=== PATIENT | male | born 1975 | race Caucasian/White ===

== ENCOUNTER 2021-01-30 19:54 | Emergency (ER) | payer SELFPAY ==
[2021-01-30 20:07] VITALS: BP 151/92; PULSE 78; RESP 16; TEMP 36.6; O2SAT 100; BMI 29.4
--- NOTE | 2021-01-30 20:19 | ED_ITS ---
HPI - General Adult General: Chief complaint: General Medical Stated complaint: possible infection in left arm Time Seen by Provider: 01/30/21 20:13 Source: patient Mode of arrival: ambulatory Limitations: no limitations History of Present Illness: HPI narrative: 45-year-old male patient presents to the emergency department with 2 to 3-day history of redness to the left arm, he reports injected methamphetamine to the left arm, noted red streak that started up the arm. He reports itching to the area, denies fever chills nausea vomiting. He reports no previous history in the past of such infection. Location: upper extremity Radiation: proximal Severity: mild Quality: other (Denies pain) Associated symptoms: Reports no associated symptoms; Deny chest pain, diaphoresis, dyspnea, headache(s), nausea, rash, palpitations or vomiting Treatments prior to arrival: none Review of Systems General: Reports: 10 or more systems reviewed and unremarkable except in HPI and below Const: Denies: fever(s), chills or diaphoresis Eyes: Denies: blurry vision or eye redness ENMT: Denies: throat pain, dental pain or disequilibrium Card: Denies: chest pain, palpitations or irregular heart rhythm Resp: Denies: dyspnea, productive cough, non-productive cough or wheezing GI: Denies: abdominal pain, nausea or vomiting : Denies: dysuria Musc: Denies: back pain Skin/Breast: Reports: erythema and changes in skin color; Denies: rash or pruritus Neuro: Denies: headache(s), weakness in extremities or behavioral changes Psych: Denies: anxiety or depression Melo/Lymph: Denies: easy bruising Physical Exam Const: COMMON NORMALS: no acute distress, average body habitus, patient oriented x3, healthy appearing, alert and well nourished GENERAL APPEARANCE: cooperative, comfortable, well kempt, well developed and well hydrated; not anxious, not ill appearing and not frail appearing ORIENTATION/CONSCIOUSNESS: Yes awake, Yes oriented to person, Yes oriented to place and Yes oriented to time HENMT: COMMON NORMALS: normocephalic, Normal external nose present and moist oral mucous membranes HEAD & SCALP: normocephalic NOSE: Normal external nose present Eye: COMMON NORMALS: Equal, round and reactive pupils present and EOMs intact bilaterally GENERAL EYE: appearance normal, both eyes and all related structures PUPIL: Yes Equal, round and reactive pupils present Neck/C-Spine: COMMON NORMALS: full ROM and no lymphadenopathy GENERAL: Yes normal visual inspection and Yes trachea midline CERVICAL SPINE: Yes cervical ROM normal Lymph: LYMPHATIC: no lymphadenopathy noted and lymphedema Chest: COMMONS NORMALS: normal inspection of the chest and normal palpation of entire chest wall Resp: COMMON NORMALS: normal respiratory effort, No retractions, No use of accessory muscles and clear to auscultation bilaterally EFFORT & INSPECTION: Yes able to speak in complete sentences, No abnormal respiratory pattern and No pursed lip breathing AUSCULTATION: clear to auscultation bilaterally Cardio: COMMON NORMALS: regular rate, regular rhythm, S1 normal heart sound present, S2 normal heart sound present and Peripheral pulses 2+ throughout RATE: regular rate RHYTHM: regular rhythm HEART SOUNDS: S1 normal heart sound present and S2 normal heart sound present PERIPHERAL PULSES: Peripheral pulses 2+ throughout GI: COMMON NORMALS: Normal to inspection, nondistended, normoactive bowel sounds present, Soft to palpation and non-tender INSPECTION: Yes normal to inspection PALPATION: Yes Soft to palpation, No Firmness to palpation present (GI) and No Tenderness to palpation present (GI) : COMMON NORMALS: Yes no CVA tenderness BLADDER/KIDNEY EXAM: Yes no CVA tenderness Back/Pelvis: COMMON NORMALS: no CVA tenderness, thoracic and lumbar spine normal to inspection, no thoracic nor lumbar tenderness and thoraco-lumbar ROM normal Extremity: COMMON NORMALS: normal to inspection, full ROM, capillary refill normal, no clubbing, cyanosis or edema, no calf tenderness and no pedal edema GENERAL: Yes normal exam except as noted EXTREMITY IMAGE (FRONT): 1. Patient has x marked on his arm, antecubital space with proximal erythema of 2 cm. Negative edema or erythema of the arm. Negative axillary lymphadenopathy. No increased warmth noted Neuro: COMMON NORMALS: patient oriented x3 and no focal motor deficits SENSORIUM/ORIENTATION: Yes alert, Yes oriented to person, Yes oriented to place and Yes oriented to time Psych: COMMON NORMALS: mental status grossly normal, Normal thought process present and cooperative APPEARANCE: Yes well kempt ACTIVITY/MOTOR BEHAVIOR: Yes appropriate eye contact THOUGHT PROCESS: Normal thought process present Skin: COMMON NORMALS: no rashes or lesions noted and turgor normal GENERAL SKIN EXAM: no rashes or lesions noted and turgor normal Course Vital Signs: Vital signs: Vital Signs Temperature 97.8 F 01/30/21 20:07 Pulse Rate 78 01/30/21 20:07 Respiratory Rate 16 01/30/21 20:07 Blood Pressure 151/92 01/30/21 20:07 Pulse Oximetry 100 01/30/21 20:07 Discharge Plan Discharge Patient Disposition: Home Clinical Impression: Methamphetamine abuse, Cellulitis of arm, left Condition: Stable Prescriptions: New clindamycin HCl 300 mg capsule 300 mg PO QID 10 Days Qty: 40 RF: 0 Discharge Orders: Discharge ED (Routine); Ordered 01/30/21 Ordered By: Kamryn Serna Discharge Diet: Usual diet Discharge Activity: Resume usual activity Patient Instructions: Cellulitis (ED), Methamphetamine Abuse (ED), Opioid Safety Activity Restrictions/Additional Instructions: Return to the emergency department if you develop increased redness, swelling under the arm or fever/chills Take clindamycin until all gone, even if feeling better May take Benadryl as needed for itching Follow-up with your primary care provider in 1 to 2 days to ensure you are improving. Coding Level of Care Code ED Enzyme Chemist for Su Fwmatthew Exam Comprehensive
[2021-01-30] MEDS: clindamycin 150 mg Capsule 300 MG PO (20:49)
[2021-01-30] MEDS: cefTRIAXone 1,000 MG in lidocaine 1% 2.1 ML 2.1 MG IM (20:54)
== END 2021-01-30 20:55 | disposition home or self-care (01) ==
PROVIDERS: Emergency Provider Nurse Practitioner Family
DX: L03.114 Cellulitis of left upper limb (principal); F15.10 Other stimulant abuse, uncomplicated
CPT/HCPCS: 96372; 99283; J0696

== ENCOUNTER 2021-05-16 02:00 | Emergency (ER) | payer SELFPAY ==
[2021-05-16 02:38] VITALS: BP 134/81; PULSE 72; RESP 16; TEMP 36.8; O2SAT 97; BMI 29.4
--- NOTE | 2021-05-16 02:54 | ED_ITS ---
HPI - Dental/Oral General: Chief complaint: Dental/Oral Stated complaint: syncopal episodes Time Seen by Provider: 05/16/21 02:50 History of Present Illness: HPI Narrative: This patient presents to the emergency department complaining of dental pain. Patient is significantly poor dentition and thinks he has a dental infection. Patient states he states been like this for some time and needs to see a dentist to have multiple. MD Complaint: tooth pain Location: Tooth # (3) Onset (ago): week(s) Associated symptoms: Denies fever(s) Review of Systems General: Reports: 10 or more systems reviewed and unremarkable except in HPI and below Const: Denies: fever(s), chills, body aches or fatigue Eyes: Denies: change in vision or blurry vision ENMT: Reports: dental pain; Denies: throat pain, hoarseness or mouth pain Card: Denies: chest pain, palpitations, irregular heart rhythm, edema, swelling of feet/ankles or lightheadedness Resp: Denies: dyspnea, productive cough, non-productive cough, wheezing or pain on inspiration GI: Denies: abdominal pain, nausea or vomiting : Denies: flank pain, dysuria, urinary frequency, urinary urgency or urinary hesitancy Musc: Denies: neck pain, back pain, extremity pain, extremity swelling, joint pain, joint swelling, joint redness, joint warmth or limited range of motion Skin/Breast: Denies: rash, pruritus, erythema or skin tenderness Neuro: Denies: headache(s), numbness in extremities or weakness in extremities Psych: Denies: anxiety or depression Physical Exam Const: COMMON NORMALS: no acute distress, average body habitus, patient oriented x3, no limitations, healthy appearing, alert and well nourished HENMT: COMMON NORMALS: normocephalic, atraumatic, hearing grossly normal bilaterally, external ears normal, EAC's normal, TM's normal bilaterally, Normal external nose present, Normal nasal mucous membranes and turbinates present, moist oral mucous membranes, oropharynx normal, dentition normal and gingiva normal HEAD & SCALP: normocephalic and atraumatic NOSE: Normal external nose present and Normal nasal mucous membranes and turbinates present EXTERNAL EAR: Yes external ears normal EXTERNAL AUDITORY CANAL: EAC's normal TYMPANIC MEMBRANE: TM's normal bilaterally TEETH & GINGIVA: Yes gingiva abnormal and Yes poor dentition Neck/C-Spine: COMMON NORMALS: full ROM, no lymphadenopathy, supple, no meningeal signs, no JVD, Thyroid normal and No carotid bruits THYROID: Thyroid normal Chest: COMMONS NORMALS: normal inspection of the chest, normal palpation of entire chest wall, normal inspection of the breasts and normal palpation of the breasts Breast/axilla inspection: Yes normal inspection of the breasts BREAST/AXILLA PALPATION: Yes normal palpation of the breasts Resp: COMMON NORMALS: normal respiratory effort, No retractions, No use of accessory muscles, clear to auscultation bilaterally and percussion normal AUSCULTATION: clear to auscultation bilaterally PERCUSSION: percussion normal Cardio: COMMON NORMALS: no JVD, regular rate, regular rhythm, S1 normal heart sound present, S2 normal heart sound present, No gallops present (Cardio), No clicks present (Cardio), No murmurs present (Cardio), No rub (Cardio) and Peripheral pulses 2+ throughout RATE: regular rate RHYTHM: regular rhythm HEART SOUNDS: S1 normal heart sound present and S2 normal heart sound present PERIPHERAL PULSES: Peripheral pulses 2+ throughout GI: COMMON NORMALS: Normal to inspection, nondistended, normoactive bowel sounds present, Soft to palpation, non-tender, No hepatosplenomegaly present, no masses and no bruits PALPATION: Yes Soft to palpation and Yes No hepatosplenomegaly present : COMMON NORMALS: Yes no CVA tenderness BLADDER/KIDNEY EXAM: Yes no CVA tenderness Back/Pelvis: COMMON NORMALS: no CVA tenderness, thoracic and lumbar spine normal to inspection, no thoracic nor lumbar tenderness, thoraco-lumbar ROM normal and straight leg raise negative bilaterally Extremity: COMMON NORMALS: normal to inspection, full ROM, capillary refill normal, no joint enlargement, no clubbing, cyanosis or edema, no calf tenderness and no pedal edema Neuro: COMMON NORMALS: patient oriented x3 SENSORIUM/ORIENTATION: Yes alert MENINGEAL SIGNS: Yes no meningeal signs Course Reevaluation(s): Reevaluation #1: Patient be discharged home with Keflex and diclofenac. May use [id number] Anbesol or Orajel. As needed. Patient should swish with salt water and spit. Follow-up with dentist of choice in 2 to 3 days as needed. Time: 02:56 Vital Signs: Vital signs: Vital Signs Temperature 98.2 F 05/16/21 02:38 Pulse Rate 72 05/16/21 02:38 Respiratory Rate 16 05/16/21 02:38 Blood Pressure 134/81 05/16/21 02:38 Pulse Oximetry 97 05/16/21 02:38 Discharge Plan Discharge Patient Disposition: Home Clinical Impression: Dental abscess, Dental caries Condition: Stable Prescriptions: New dicyclomine 20 mg tablet 20 mg PO TID Qty: 14 RF: 0 diclofenac sodium 75 mg tablet,delayed release (DR/EC) 75 mg PO BID PRN (Reason: pain) Qty: 20 RF: 0 Discharge Orders: Discharge ED (Routine); Ordered 05/16/21 Ordered By: Serge Klein Discharge Diet: Advance as tolerated Discharge Activity: Resume usual activity Patient Instructions: Opioid Safety Activity Restrictions/Additional Instructions: Patient be discharged home with Keflex and diclofenac. May use [id number] Anbesol or Orajel. As needed. Patient should swish with salt water and spit. Follow-up with dentist of choice in 2 to 3 days as needed. Coding Level of Care Code ED [employer] Supervisor for Su Guillen
[2021-05-16 03:38] VITALS: BP 140/78; PULSE 89; RESP 18; O2SAT 98
== END 2021-05-16 03:41 | disposition home or self-care (01) ==
PROVIDERS: Emergency Provider Emergency Medicine
DX: K04.7 Periapical abscess without sinus (principal); K02.9 Dental caries, unspecified
CPT/HCPCS: 99282

== ENCOUNTER 2021-05-27 12:26 | Emergency (ER) | payer SELFPAY ==
[2021-05-27 12:40] VITALS: BP 183/101; PULSE 70; RESP 16; TEMP 37; O2SAT 99; BMI 29.4
--- NOTE | 2021-05-27 12:48 | XRR_ITS ---
PROCEDURE INFORMATION: Exam: XR Chest Exam date and time: 05/27/2021 12:48 PM Age: 45 years old Clinical indication: Pain; Chest pressure; Additional info: Cp TECHNIQUE: Imaging protocol: XR of the chest. Views: 1 view. COMPARISON: CR Chest 1 [place] [id number] 03/21/2019 10:09 PM FINDINGS: Lungs: Unremarkable. No consolidation. Pleural spaces: Unremarkable. No pleural effusion. No pneumothorax. Heart/Mediastinum: Unremarkable. No cardiomegaly. Bones/joints: Unremarkable. XR/XR chest 1V portable [id number] IMPRESSION: No acute findings.
--- NOTE | 2021-05-27 12:48 | ECG_ITS ---
[facility] Test Date: 2021-05-27 Pat Name: Ganga Hernandez Department: Room: Gender: Male Academic Assistant: : 1975 Requested By: Deniz Reyes I Order Number: [id number] Reading MD: Tai Tsai M.D. Measurements Intervals [place] Rate: 63 P: 32 MN: 147 QRS: 19 QRSD: 93 T: 38 QT: 407 QTc: 417 Interpretive Statements SINUS RHYTHM Compared to ECG 03/21/2019 23:13:05 T-wave abnormality no longer present Electronically Signed On 05-28-2021 21:03:44 CDT by Tai Tsai M.D. [id number]
--- NOTE | 2021-05-27 12:50 | ED_ITS ---
HPI - Chest Pain General: Chief Complaint: Chest Pain Stated Complaint: cp, heavy pressure Time Seen by Provider: 05/27/21 12:41 Source: patient Mode of arrival: ambulatory Limitations: no limitations History of Present Illness: HPI narrative: 45-year-old male with no significant past medical history who presents to the emergency department with chest pain. He describes it as chest pressure and it started about 5 hours ago when he woke from sleep. Chest pain is retrosternal and it radiates to his left shoulder. No dizziness, no nausea or vomiting. Over the last few weeks he has had episodes of syncope with associated fecal incontinence. He has not been evaluated for this in the emergency department. MD complaint: chest heaviness Onset (ago): hour(s) (5) Timing of current episode: constant Prior episodes: No Onset: during rest Pain location: substernal Pain radiation: left shoulder Severity: severe Quality: heaviness Relieving factors: nothing Exacerbating factors: nothing Associated symptoms: Deny abdominal pain, diaphoresis, dyspnea, fever(s), leg edema, nausea, palpitations, sense of impending doom, syncope or vomiting Treatment prior to arrival: none Review of Systems General: Reports: 10 or more systems reviewed and unremarkable except in HPI and below Const: Denies: fever(s) or diaphoresis Card: Denies: palpitations or syncope Resp: Denies: dyspnea GI: Denies: abdominal pain, nausea or vomiting Physical Exam Const: COMMON NORMALS: no acute distress, average body habitus, patient oriented x3, no limitations, healthy appearing, alert and well nourished HENMT: COMMON NORMALS: normocephalic, atraumatic and moist oral mucous membranes HEAD & SCALP: normocephalic and atraumatic Neck/C-Spine: COMMON NORMALS: no meningeal signs and no JVD Chest: COMMONS NORMALS: normal inspection of the chest and normal palpation of entire chest wall Resp: COMMON NORMALS: normal respiratory effort, No retractions, No use of accessory muscles, clear to auscultation bilaterally and percussion normal AUSCULTATION: clear to auscultation bilaterally PERCUSSION: percussion normal Cardio: COMMON NORMALS: no JVD, regular rate, regular rhythm, S1 normal heart sound present, S2 normal heart sound present, No gallops present (Cardio), No clicks present (Cardio), No murmurs present (Cardio), No rub (Cardio) and Peripheral pulses 2+ throughout RATE: regular rate RHYTHM: regular rhythm HEART SOUNDS: S1 normal heart sound present and S2 normal heart sound present PERIPHERAL PULSES: Peripheral pulses 2+ throughout GI: COMMON NORMALS: Normal to inspection, nondistended, normoactive bowel sounds present, Soft to palpation, non-tender, No hepatosplenomegaly present, no masses and no bruits PALPATION: Yes Soft to palpation and Yes No hepatosplenomegaly present Extremity: COMMON NORMALS: normal to inspection, full ROM, capillary refill normal, no calf tenderness and no pedal edema Neuro: COMMON NORMALS: patient oriented x3 SENSORIUM/ORIENTATION: Yes alert MENINGEAL SIGNS: Yes no meningeal signs Course Reevaluation(s): Reevaluation #1: Discussed his lab and imaging findings with him. Negative for acute findings. Negative high-sensitivity troponin x2. He will be discharged home and will obtain an outpatient stress test. Patient voiced understanding and is in agreement with the plan. Time: 16:12 Vital Signs: Vital signs: Vital Signs Temperature 98.6 F 05/27/21 12:40 Pulse Rate 59 L 05/27/21 16:26 Respiratory Rate 18 05/27/21 16:26 Blood Pressure 153/88 05/27/21 16:26 Pulse Oximetry 99 05/27/21 16:26 MDM - Chest Pain MDM Narrative: Medical decision making narrative: 45-year-old male who presents to the emergency department with chest pain. Evaluation in the emergency department is unremarkable. He is discharged home and will obtain an outpatient stress test. Pain was relieved with nitroglycerin. Lab Data: Labs: Lab Results 05/27/21 05/27/21 05/27/21 Range/Units 13:05 13:05 13:05 WBC 11.4 H (4.0-10.0) 10^3/ uL RBC 4.68 (4.1-5.3) 10^6/u L Hgb 13.7 (11.7-16.6) g/dL Hct 42.9 (42.0-52.0) % MCV 91.7 (80-94) fL MCH 29.3 (28.0-34.0) pg MCHC 31.9 (30.0-36.0) g/dL RDW 12.9 (12.1-15.1) % Plt Count 255 (130-400) 10^3/c mm MPV 9.9 (7.4-10.4) fL Neut % (Auto) 30.6 % Lymph % (Auto) 61.8 % [place] % (Auto) 5.2 % Eos % (Auto) 1.5 % Baso % (Auto) 0.7 % Neut # (Auto) 3.50 (1.8-7.7) 10^3/u L Lymph # (Auto) 7.0 H (0.8-4.8) 10^3/u L [place] # (Auto) 0.6 (0.2-0.9) 10^3/u L Eos # (Auto) 0.2 (0.0-0.8) 10^3/u L Baso # (Auto) 0.1 (0.0-0.1) 10^3/u L Nucleated RBC % (a uto) 0 % Nucleated RBCs # 0.0 /100WBC D-Dimer 0.72 H (0-0.59) ug/mIFE U Sodium 136 (136-145) mmol/L Potassium 4.4 (3.5-5.1) mmol/L Chloride 103 (98-107) mmol/L Carbon Dioxide 23 (22-29) mmol/L Anion Gap 14.4 (5-19) BUN 13 (6-20) mg/dL Creatinine 1.0 (0.7-1.2) mg/dL GFR Calculation 80.8 L (90-130) mL/min Glucose 115 (65-115) mg/dL Calculated Osmolal ity 283 L (285-295) mOsm/k g Calcium 8.8 (8.5-10.5) mg/dL Total Bilirubin 0.3 (0.15-1.2) mg/dL AST 29 (0-40) U/L ALT 20 (0-41) U/L Alkaline Phosphata se 75 (40-130) IU/L Troponin T Baselin e (0-15) ng/L Troponin T 120 Min [place] (0-15) ng/L Delta Troponin T (0-10) ABS# NT-Pro-B Natriuret Pep 93 (0-125) pg/mL Total Protein 7.3 (6.6-8.7) g/dL Albumin 3.8 (3.5-5.2) g/dL Globulin 3.5 (1.3-4.6) g/dL Lipase 27 (13-60) U/L 05/27/21 05/27/21 Range/Units 13:05 15:12 WBC (4.0-10.0) 10^3/ uL RBC (4.1-5.3) 10^6/u L Hgb (11.7-16.6) g/dL Hct (42.0-52.0) % MCV (80-94) fL MCH (28.0-34.0) pg MCHC (30.0-36.0) g/dL RDW (12.1-15.1) % Plt Count (130-400) 10^3/c mm MPV (7.4-10.4) fL Neut % (Auto) % Lymph % (Auto) % [place] % (Auto) % Eos % (Auto) % Baso % (Auto) % Neut # (Auto) (1.8-7.7) 10^3/u L Lymph # (Auto) (0.8-4.8) 10^3/u L [place] # (Auto) (0.2-0.9) 10^3/u L Eos # (Auto) (0.0-0.8) 10^3/u L Baso # (Auto) (0.0-0.1) 10^3/u L Nucleated RBC % (a uto) % Nucleated RBCs # /100WBC D-Dimer (0-0.59) ug/mIFE U Sodium (136-145) mmol/L Potassium (3.5-5.1) mmol/L Chloride (98-107) mmol/L Carbon Dioxide (22-29) mmol/L Anion Gap (5-19) BUN (6-20) mg/dL Creatinine (0.7-1.2) mg/dL GFR Calculation (90-130) mL/min Glucose (65-115) mg/dL Calculated Osmolal ity (285-295) mOsm/k g Calcium (8.5-10.5) mg/dL Total Bilirubin (0.15-1.2) mg/dL AST (0-40) U/L ALT (0-41) U/L Alkaline Phosphata se (40-130) IU/L Troponin T Baselin e 6 (0-15) ng/L Troponin T 120 Min [place] 6.00 (0-15) ng/L Delta Troponin T 0 (0-10) ABS# NT-Pro-B Natriuret Pep (0-125) pg/mL Total Protein (6.6-8.7) g/dL Albumin (3.5-5.2) g/dL Globulin (1.3-4.6) g/dL Lipase (13-60) U/L Imaging Data^: CTA Chest: Attestation: I personally reviewed and interpreted this imaging study as follows: Radiologist's impression: [address] [id number] Scan ReportSigned Patient: Ganga Hernandez #: [id number]: 1975Acct#:[id number]/Sex: 45 / MADM Date: 05/27/21Loc: ERRoom/Bed:Attending Dr: Ordering Provider/Ordering MD: Deniz Reyes MD, [facility] [place] Date of Service: 05/27/21 Procedure(s): CT angio chest PE protcl [id number] Accession Number(s): [id number] Report Number: [id number] PROCEDURE INFORMATION: Exam: CTA Chest With Contrast Exam date and time: 05/27/2021 2:11 PM Age: 45 years old Clinical indication: Sternal or substernal pain; Patient HX: C/O cp/pressure radiating to L shoulder; Additional info: Cp, SOB, dizziness TECHNIQUE: Imaging protocol: Computed tomographic angiography of the chest with contrast. 3D rendering (Not supervised by radiologist): MIP and/or 3D reconstructed images were created by the technologist. Radiation optimization: All CT scans at this facility use at least one of these dose optimization techniques: automated exposure control; mA and/or kV adjustment per patient size (includes targeted exams where dose is matched to clinical indication); or iterative reconstruction. Contrast material: OMNI 350; Contrast volume: 84 ml; Contrast route: INTRAVENOUS (IV); COMPARISON: CR (CHEST, ) 05/27/2021 1:15 PM RADIATION DOSE METRICS: Total DLP (mGy-cm): 543.31 FINDINGS: Pulmonary arteries: Normal. No pulmonary emboli. Aorta: Unremarkable. No aortic aneurysm. No aortic dissection. Lungs: Unremarkable. No consolidation. No masses. Pleural spaces: Unremarkable. No pneumothorax. No pleural effusion. Heart: Unremarkable. No cardiomegaly. No pericardial effusion. Lymph nodes: Unremarkable. No enlarged lymph nodes. Gallbladder and bile ducts: The gallbladder has been removed. Bones/joints: Unremarkable. No acute fracture. Soft tissues: Unremarkable. CT/CT angio chest PE protcl [id number] IMPRESSION: No evidence for pulmonary embolus. Radiation Dose CTDIVOL = (mGy): DLP = 543.31 (mGy-cm) Dictated By:Trish Quiroz MDSigned By:Trish Quiroz MDSigned Date/Time:05/27/21 1451DD/ 1449 CXR: Attestation: I personally reviewed and interpreted this imaging study as follows: Radiologist's impression: [address] [id number] ReportSigned Patient: Ganga Hernandez #: [id number]: 1975Acct# :[id number]/Sex: 45 / MADM Date: 05/27/21Loc: [facility]/Bed:Attending Dr: Ordering Provider/Ordering MD: Deniz Reyes MD, [facility] [place] Date of Service: 05/27/21 Procedure(s): XR chest 1V portable [id number] Accession Number(s): [id number] Report Number: [id number] PROCEDURE INFORMATION: Exam: XR Chest Exam date and time: 05/27/2021 12:48 PM Age: 45 years old Clinical indication: Pain; Chest pressure; Additional info: Cp TECHNIQUE: Imaging protocol: XR of the chest. Views: 1 view. COMPARISON: CR Chest 1 [place] [id number] 03/21/2019 10:09 PM FINDINGS: Lungs: Unremarkable. No consolidation. Pleural spaces: Unremarkable. No pleural effusion. No pneumothorax. Heart/Mediastinum: Unremarkable. No cardiomegaly. Bones/joints: Unremarkable. XR/XR chest 1V portable [id number] IMPRESSION: No acute findings. Dictated By:Trish Quiroz MDSigned By:Trish Quiroz MDSigned Date/Time:05/27/21 1447DD/ 1445 EKG Data^: EKG 1: Attestation: I personally reviewed and interpreted this EKG as follows: EKG interpretation date: 05/27/21 EKG interpretation time: 13:08 Prior EKG tracings: not available for review Interpretation: Sinus rhythm. Heart rate 63 bpm. Normal axis. No ST changes. EKG 2: Attestation: I personally reviewed and interpreted this EKG as follows: EKG interpretation date: 05/27/21 EKG interpretation time: 14:57 Prior EKG tracings: available for review Interpretation: Sinus bradycardia. Heart rate 58 bpm. Normal axis. No ST changes. No significant change from earlier. Discharge Plan Discharge Patient Disposition: Home Clinical Impression: Chest pain, non-cardiac Condition: Stable Prescriptions: Continued dicyclomine 20 mg tablet 20 mg PO TID Qty: 14 RF: 0 diclofenac sodium 75 mg tablet,delayed release (DR/EC) 75 mg PO BID PRN (Reason: pain) Qty: 20 RF: 0 Discharge Orders: Discharge ED (Routine); Ordered 05/27/21 Ordered By: Deniz Reyes Discharge Diet: Usual diet Discharge Activity: Increase activity as tolerated Patient Instructions: Noncardiac Chest Pain (ED) Activity Restrictions/Additional Instructions: Return for any new or worsening symptoms. Follow-up with your primary care provider within 3 days. You will be contacted by case management to schedule an outpatient stress test. 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
[2021-05-27] MEDS: aspirin 81 mg Chew Tablet 324 MG PO (12:54)
[2021-05-27 13:10] LABS: Basophils # 0.1 10^3/uL (0.0-0.1); Basophils % 0.7 %; Eosinophils # 0.2 10^3/uL (0.0-0.8); Eosinophils % 1.5 %; Hematocrit 42.9 % (42.0-52.0); Hemoglobin 13.7 g/dL (11.7-16.6); Lymphocytes % 61.8 %; Mean Corpuscular HGB Conc 31.9 g/dL (30.0-36.0); Mean Corpuscular Hemoglobin 29.3 pg (28.0-34.0); Mean Corpuscular Volume 91.7 fL (80-94); Mean Platelet Volume 9.9 fL (7.4-10.4); Monocytes # 0.6 10^3/uL (0.2-0.9); Monocytes % 5.2 %; Neutrophils % 30.6 %; Nucleated Red Blood Cells % 0 %; Platelet Count 255 10^3/cmm (130-400); Red Blood Count 4.68 10^6/uL (4.1-5.3); Red Cell Distribution Width 12.9 % (12.1-15.1); White Blood Count 11.4 10^3/uL (4.0-10.0)
[2021-05-27] MEDS: nitroglycerin 0.4 mg sublingual Tablet SUBLINGUAL ×2 (13:12→13:20)
[2021-05-27 13:14] VITALS: BP 166/102; PULSE 67; RESP 18; O2SAT 99
[2021-05-27 13:18] VITALS: BP 139/90; PULSE 71; RESP 18; O2SAT 98
[2021-05-27 13:24] LABS: D Dimer 0.72 ug/mIFEU (0-0.59)
[2021-05-27 13:25] VITALS: BP 138/88; PULSE 67; RESP 18; O2SAT 96
--- NOTE | 2021-05-27 13:26 | PC.NURSE ---
@ Nitro resolved pt chest pain and current BP 138/88, er doctor notified.
[2021-05-27 13:52] LABS: Troponin(5th) Baseline 6 ng/L (0-15)
[2021-05-27 14:01] LABS: Alanine Aminotransferase 20 U/L (0-41); Albumin Level 3.8 g/dL (3.5-5.2); Alkaline Phosphatase 75 IU/L (40-130); Aspartate Amino Transferase 29 U/L (0-40); Blood Urea Nitrogen 13 mg/dL (6-20); Calcium 8.8 mg/dL (8.5-10.5); Carbon Dioxide 23 mmol/L (22-29); Chloride 103 mmol/L (98-107); Globulin 3.5 g/dL (1.3-4.6); Glomerular Filtration Rate 80.8 mL/min (90-130); Glucose 115 mg/dL (65-115); Lipase 27 U/L (13-60); NT Pro B Type Natriuretic Pept 93 pg/mL (0-125); Osmolality Calculated 283 mOsm/kg (285-295); Sodium 136 mmol/L (136-145); Total Bilirubin 0.3 mg/dL (0.15-1.2); Total Protein 7.3 g/dL (6.6-8.7)
[2021-05-27 14:03] LABS: Anion Gap 14.4 (5-19); Potassium 4.4 mmol/L (3.5-5.1)
--- NOTE | 2021-05-27 14:11 | CTR_ITS ---
PROCEDURE INFORMATION: Exam: CTA Chest With Contrast Exam date and time: 05/27/2021 2:11 PM Age: 45 years old Clinical indication: Sternal or substernal pain; Patient HX: C/O cp/pressure radiating to L shoulder; Additional info: Cp, SOB, dizziness TECHNIQUE: Imaging protocol: Computed tomographic angiography of the chest with contrast. 3D rendering (Not supervised by radiologist): MIP and/or 3D reconstructed images were created by the technologist. Radiation optimization: All CT scans at this facility use at least one of these dose optimization techniques: automated exposure control; mA and/or kV adjustment per patient size (includes targeted exams where dose is matched to clinical indication); or iterative reconstruction. Contrast material: OMNI 350; Contrast volume: 84 ml; Contrast route: INTRAVENOUS (IV); COMPARISON: CR (CHEST, ) 05/27/2021 1:15 PM RADIATION DOSE METRICS: Total DLP (mGy-cm): 543.31 FINDINGS: Pulmonary arteries: Normal. No pulmonary emboli. Aorta: Unremarkable. No aortic aneurysm. No aortic dissection. Lungs: Unremarkable. No consolidation. No masses. Pleural spaces: Unremarkable. No pneumothorax. No pleural effusion. Heart: Unremarkable. No cardiomegaly. No pericardial effusion. Lymph nodes: Unremarkable. No enlarged lymph nodes. Gallbladder and bile ducts: The gallbladder has been removed. Bones/joints: Unremarkable. No acute fracture. Soft tissues: Unremarkable. CT/CT angio chest PE protcl [id number] IMPRESSION: No evidence for pulmonary embolus. Radiation Dose CTDIVOL = (mGy): DLP = 543.31 (mGy-cm)
[2021-05-27] MEDS: iohexol 350 mg/mL 100 mL Btl IV (14:36)
--- NOTE | 2021-05-27 14:48 | ECG_ITS ---
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 Measurements Intervals [place] Rate: 58 P: 39 UT: 153 QRS: 20 QRSD: 96 T: 24 QT: 417 QTc: 411 Interpretive Statements SINUS BRADYCARDIA Compared to ECG 05/27/2021 13:06:43 Sinus rhythm no longer present Electronically Signed On 05-30-2021 0:31:46 CDT by Tai Tsai M.D. [email or web address] [id number]
[2021-05-27 15:40] LABS: Troponin 5 2HR Delta 0 ABS# (0-10)
[2021-05-27 15:57] VITALS: BP 162/91; PULSE 61; RESP 16; O2SAT 100
[2021-05-27 16:26] VITALS: BP 153/88; PULSE 59; RESP 18; O2SAT 99
--- NOTE | 2021-05-30 09:59 | PC.SOCIAL ---
05/28/2021 Referral received to schedule a stress test for patient. No PCP is listed so attempted to call patient however was unable to reach. Left message at number provided. Referral was from Dr Reyes. 05/29/2021 Tried to reach patient again no answer left another message requesting a call. As of 05/30/2021 have not been able to reach patient and no return call received. Will not be able to scheduled unless patient calls back.
== END 2021-05-27 16:34 | disposition home or self-care (01) ==
PROVIDERS: Emergency Provider Family Medicine
DX: R07.89 Other chest pain (principal)
CPT/HCPCS: 36415; 71045; 71275; 80053; 83690; 83880; 84484; 85025; 85378; 93005; 99284; Q9967

== ENCOUNTER 2022-01-10 23:31 | Emergency (ER) | payer MEDICAID, SELFPAY ==
[2022-01-10 23:42] VITALS: BP 163/94; PULSE 76; RESP 16; TEMP 36.5; O2SAT 95; BMI 29.4
--- NOTE | 2022-01-11 00:32 | W.ED.GENADLT ---
HPI - General Adult General: Chief complaint: Neuro Symptoms/Deficit Stated complaint: Feet and Hands Tingeling Time Seen by Provider: 01/11/22 00:32 History of Present Illness: 46-year-old male patient comes in today with complaints of numbness and tingling in the hands and feet for about 2 months. 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 Patient appears well. Patient was concerned for circulation. Patient does report that he has a history of methamphetamine and IV drug use. Patient denies any fever or other symptoms. Patient takes no routine medications. Onset (ago): week(s) Review of Systems General: Reports: 10 or more systems reviewed and unremarkable except in HPI and below Neuro: Reports: numbness in extremities Physical Exam Const: COMMON NORMALS: alert GENERAL APPEARANCE: well kempt Neck/C-Spine: COMMON NORMALS: no meningeal signs CERVICAL SPINE: Yes cervical ROM normal and No Cervical spine tenderness Resp: COMMON NORMALS: normal respiratory effort and clear to auscultation bilaterally AUSCULTATION: clear to auscultation bilaterally Cardio: COMMON NORMALS: regular rate, regular rhythm and Peripheral pulses 2+ throughout RATE: regular rate RHYTHM: regular rhythm PERIPHERAL PULSES: Peripheral pulses 2+ throughout GI: COMMON NORMALS: Soft to palpation and non-tender PALPATION: Yes Soft to palpation Back/Pelvis: THORACIC SPINE/UPPER BACK: Yes normal to inspection and No thoracic spinal tenderness LUMBAR SPINE/LOWER BACK: Yes normal to inspection and No lumbar spinal tenderness Extremity: COMMON NORMALS: normal to inspection and full ROM Neuro: SENSORIUM/ORIENTATION: Yes alert MENINGEAL SIGNS: Yes no meningeal signs SPEECH: speech normal GAIT: Yes Normal gait present Psych: COMMON NORMALS: cooperative and speech normal APPEARANCE: Yes well kempt SPEECH: Yes normal speech MOOD & AFFECT: Yes anxious Course Vital Signs: Vital signs: Vital Signs Temperature 97.7 F 01/10/22 23:42 Pulse Rate 76 01/10/22 23:42 Respiratory Rate 16 01/10/22 23:42 Blood Pressure 163/94 01/10/22 23:42 Pulse Oximetry 95 01/10/22 23:42 [facility] - General Adult Medical Decision Making 46-year-old male patient comes in for concerns of numbness to the hands and feet. Patient appears well. Patient has good equal strength and equal pulses throughout. Normal hair distribution is normal throughout. No tenderness is noted along the spine. Vital signs are normal. Differential diagnosis includes cervical radiculopathy, lumbar radiculopathy, peripheral neuropathy idiopathic, anxiety. 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 Other thoughts may be carpal tunnel. Blood glucose was 103. No signs of stroke or or peripheral vascular disease. Recommended we try gabapentin at bedtime 300 mg to see if that would help with his symptoms. I will request case management to set patient up with neurology for further evaluation and consideration for EMG testing. Patient reports understanding and agrees to plan. Discharge Plan Discharge Patient Disposition: Home Clinical Impression: Peripheral neuropathy Qualifiers: Peripheral neuropathy type: polyneuropathy, unspecified Qualified Code(s): G62.9 - Polyneuropathy, unspecified Condition: Stable Prescriptions: New gabapentin 300 mg capsule 300 mg PO BEDTIME 30 Days Qty: 30 0RF No Action dicyclomine 20 mg tablet 20 mg PO TID Qty: 14 0RF diclofenac sodium 75 mg tablet,delayed release (DR/EC) 75 mg PO BID PRN (Reason: pain) Qty: 20 0RF Discharge Orders: Discharge ED (Routine); Ordered 01/11/22 Ordered By: Luis Michaud Discharge Diet: Usual diet Discharge Activity: Increase activity as tolerated Patient Instructions: Peripheral Neuropathy (ED), Opioid Safety Activity Restrictions/Additional Instructions: Home and rest. Take gabapentin in the evening prior to bed. Drink plenty of water with medication. Follow-up with primary care in 1 week for recheck and adjustment of medications. I will place a neurology referral for further evaluation of your neuropathy. Return to the ER for new concerns. Coding Level of Care Code ED Wireless Sales Consultant for Chg Fwd History Expanded Problem Focused Exam Expanded Problem Focused Medical Decision Making Low Complexity Time Spent (min) 20
[2022-01-11] MEDS: gabapentin 300 mg Capsule PO (01:05)
[2022-01-11 02:11] LABS: Glucose Point of Care 103 mg/dL (70-110)
--- NOTE | 2022-01-11 11:47 | DCPLANNER ---
Addendum entered by Caridad Neumann 02/01/22 12:03: advertising sales manager was notified by Dr. Gruber office, that clinic was unable to reach patient to schedule a follow up appointment. A voicemail was left for patient to call the office to schedule an appointment. Original Note: advertising sales manager had message to schedule a follow up appointment for patient with neurology. advertising sales manager emailed patients information to the neurology clinic. Patients information would be printed and reviewed. Clinic will call patient with appointment information.
== END 2022-01-11 01:22 | disposition home or self-care (01) ==
PROVIDERS: Emergency Provider Nurse Practitioner Family
DX: G62.9 Polyneuropathy, unspecified (principal)
CPT/HCPCS: 36416; 82962; 99283

== ENCOUNTER 2022-01-31 14:50 | Emergency (ER) | payer MEDICAID, SELFPAY ==
[2022-01-31 15:26] VITALS: BP 150/89; PULSE 85; RESP 16; TEMP 36.7; O2SAT 99; BMI 29.4
--- NOTE | 2022-01-31 16:45 | W.ED.EXTPRO ---
HPI - Extremity Problem General: Chief complaint: Extremity Injury, Lower Stated complaint: Painful/swollen feet Time Seen by Provider: 01/31/22 16:41 History of Present Illness: Patient presents with neuropathic pain to the feet. Been going on for months. He was night able to get his prescription filled today because he said it was not signed. He try to get it filled in [place] now is back from work and said he can get this filled here. Would like a prescription. Associated symptoms: Deny chest pain, fever(s) or rash Review of Systems Const: Denies: fever(s), chills or body aches Eyes: Denies: eye discomfort ENMT: Denies: throat pain Card: Denies: chest pain Resp: Denies: dyspnea GI: Denies: abdominal pain, nausea or vomiting Musc: Reports: other (Feet hurt all the time.) Skin/Breast: Denies: rash Neuro: Denies: headache(s) Psych: Denies: depression or suicidal ideation Physical Exam Const: COMMON NORMALS: no acute distress, patient oriented x3 and alert HENMT: COMMON NORMALS: normocephalic HEAD & SCALP: normocephalic Eye: COMMON NORMALS: EOMs intact bilaterally Neck/C-Spine: COMMON NORMALS: no JVD Resp: COMMON NORMALS: normal respiratory effort and No use of accessory muscles Cardio: COMMON NORMALS: no JVD GI: INSPECTION: Yes normal to inspection Extremity: COMMON NORMALS: normal to inspection and full ROM OTHER: Both feet with mild swelling., Good blood flow cap refill and arterial pulses. Tenderness throughout with palpation. No discoloration noted. Neuro: COMMON NORMALS: patient oriented x3 SENSORIUM/ORIENTATION: Yes alert Psych: COMMON NORMALS: mental status grossly normal Skin: COMMON NORMALS: no rashes or lesions noted GENERAL SKIN EXAM: no rashes or lesions noted Course Vital Signs: Vital signs: Vital Signs Temperature 98.1 F 01/31/22 15:26 Pulse Rate 85 01/31/22 15:26 Respiratory Rate 16 01/31/22 15:26 Blood Pressure 150/89 01/31/22 15:26 Pulse Oximetry 99 01/31/22 15:26 MDM - Extremity (Nontraumatic) Medical Decision Making Bilateral the. Patient is to have follow-up with Dr. Burton. Discharge Plan Discharge Patient Disposition: Home Clinical Impression: Neuropathy Condition: Stable Prescriptions: New gabapentin 100 mg capsule 100 mg PO TID Qty: 30 0RF No Action gabapentin 300 mg capsule 300 mg PO BEDTIME 30 Days Qty: 30 0RF dicyclomine 20 mg tablet 20 mg PO TID Qty: 14 0RF diclofenac sodium 75 mg tablet,delayed release (DR/EC) 75 mg PO BID PRN (Reason: pain) Qty: 20 0RF Discharge Orders: Discharge ED (Routine); Ordered 01/31/22 Ordered By: Justo Feliz Discharge Diet: Usual diet Discharge Activity: Increase activity as tolerated Patient Instructions: Peripheral Neuropathy (ED) Activity Restrictions/Additional Instructions: Follow-up with medical provider as directed. Take medications as prescribed. Return to the ER or your medical provider if condition worsens. Please read and understand discharge instructions. If any questions ask please. Hospital should be contacted with an appointment for Dr. Burton's office soon. Coding Level of Care Code ED Capital Equipment Specialist for Su Guillen
[2022-01-31 17:00] VITALS: BP 150/89; PULSE 89; RESP 16; O2SAT 97
== END 2022-01-31 17:05 | disposition home or self-care (01) ==
PROVIDERS: Emergency Provider Nurse Practitioner Family
DX: G62.9 Polyneuropathy, unspecified (principal)
CPT/HCPCS: 99281

== ENCOUNTER 2022-10-16 22:22 | Emergency (ER) | payer BC, MEDICAID, SELFPAY ==
[2022-10-16 22:43] VITALS: BP 181/103; PULSE 73; RESP 16; TEMP 36.6; O2SAT 98; BMI 29.2
--- NOTE | 2022-10-16 22:50 | ED_ITS ---
HPI - Extremity Problem General: Chief complaint: Extremity Problem,Nontraumatic Stated complaint: Left foot Pain Time Seen by Provider: 10/16/22 22:49 History of Present Illness: 47-year-old male patient comes in today for complaints of discomfort to the left foot with a callus and dry rash. Patient denies any fever. Patient does report history of diabetes mellitus. Patient appears nontoxic. Patient appears in mild to no pain. Associated symptoms: Reports rash Review of Systems Musc: Reports: extremity pain Skin/Breast: Reports: rash Physical Exam Const: COMMON NORMALS: alert HENMT: COMMON NORMALS: normocephalic HEAD & SCALP: normocephalic Resp: COMMON NORMALS: normal respiratory effort Cardio: COMMON NORMALS: regular rate RATE: regular rate Back/Pelvis: COMMON NORMALS: thoracic and lumbar spine normal to inspection Extremity: LEFT LOWER EXTREMITY: Yes foot & digits (Callus to the fifth digit, dry flaky rash interdigital) Left foot and digits: Yes inspection, Yes palpation, Yes ROM and Yes other (No redness or swelling, good pulses) Neuro: SENSORIUM/ORIENTATION: Yes alert Skin: NARRATIVE SKIN EXAM: Callus to the fifth digit of the left foot, dry flaky rash between the toes. Course Vital Signs: Vital signs: Vital Signs Temperature 97.9 F 10/16/22 22:43 Pulse Rate 73 10/16/22 22:43 Respiratory Rate 16 10/16/22 22:43 Blood Pressure 181/103 10/16/22 22:43 Pulse Oximetry 98 10/16/22 22:43 Oxygen Delivery Me thod 10/16/22 22:43 MDM - Extremity (Nontraumatic) Medical Decision Making Patient comes in for evaluation of a rash between the toes of his left foot and a large callus to the middle toe. Exam notes the callus to the little toe and a flaky rash. No redness or swelling is noted. No drainage is noted. Strong peripheral pulses are noted. Differential diagnosis includes without limited to tinea pedis, diabetic foot ulcer, poor hygiene, diabetic neuropathy. Recommend follow-up with primary care for continued treatment of his diabetes and neuropathy. Recommend follow-up with podiatry for evaluation of the callus to the toe. Patient was prescribed some terbinafine cream to use between the toes of his feet to the rash. Patient reported understanding of care plan need for follow-up or return to the ER for high fever, increasing redness and swelling to the foot, or ulceration. Discharge Plan Discharge Patient Disposition: Home Clinical Impression: Callus of foot Diabetes mellitus Qualifiers: Diabetes mellitus type: type 2 Diabetes mellitus buttermaker continuous churn insulin use: without buttermaker continuous churn use Diabetes mellitus complication status: with neurologic complications Diabetes mellitus complication detail: with unspecified neuropathy Qualified Code(s): E11.40 - Type 2 diabetes mellitus with diabetic neuropathy, unspecified Tinea pedis Qualifiers: Laterality: unspecified laterality Qualified Code(s): B35.3 - Tinea pedis Condition: Stable Prescriptions: New terbinafine HCl 1 % cream 1 applic topical BID Qty: 30 0RF No Action dicyclomine 20 mg tablet 20 mg PO TID Qty: 14 0RF diclofenac sodium 75 mg tablet,delayed release (DR/EC) 75 mg PO BID PRN (Reason: pain) Qty: 20 0RF gabapentin 100 mg capsule 100 mg PO TID Qty: 30 0RF Discharge Orders: Discharge ED (Routine); Ordered 10/16/22 Ordered By: Luis Michaud Discharge Diet: Usual diet Discharge Activity: Increase activity as tolerated Patient Instructions: Pain Management Activity Restrictions/Additional Instructions: Follow-up with podiatry for further evaluation and treatment of the callus to the toe and for your probable tinea pedis. Eat a healthy diet to maintain good blood sugars. Case management will contact you regarding follow-up with primary care and podiatry. Return to ER for new concerns or worsening symptoms such as high fever greater than 100.4, increasing redness and swelling of the foot, or ulceration of wound. Coding Level of Care Code ED Toggle Press Operator for Su Guillen
[2022-10-16] MEDS: terbinafine 1% Cream 15 gm 1 APPLIC TOPICAL (23:06)
--- NOTE | 2022-10-17 09:42 | PC.SOCIAL ---
Addendum entered by Caridad Neumann 11/20/22 13:01: Podiatry appointment was cancelled Addendum entered by Caridad Neumann 11/20/22 12:59: Patient had a follow up appointment scheduled with Dr. Lara - patient did not attend appointment. Original Note: Podiatry Referral Referral sent to podiatry scheduling. Clinic will contact patient with appt date/time. PCP Appointment scheduled with Dr. Lara on October 21 at 0845. Called and updated patient of appt. date/time.
== END 2022-10-16 23:39 | disposition home or self-care (01) ==
PROVIDERS: Emergency Provider Nurse Practitioner Family
DX: B35.3 Tinea pedis (principal); L84 Corns and callosities; E11.40 Type 2 diabetes mellitus with diabetic neuropathy, unspecified
CPT/HCPCS: 99283

== ENCOUNTER → 2023-01-30 09:59 | Outpatient (BNVA) | payer BC, MEDICAID, SELFPAY | PROVIDERS: PCP Family Medicine; Visit Provider Family Medicine | DX: I10 Essential (primary) hypertension (principal); N52.9 Male erectile dysfunction, unspecified; B19.20 Unspecified viral hepatitis C without hepatic coma | CPT/HCPCS: 80053; 80061; 81000; 84403; 85025; 86705; 86706; 86709; 86803; 87340; 87522 ==

== ENCOUNTER → 2023-02-05 09:17 | Outpatient (BNVA) | payer BC, MEDICAID, SELFPAY | PROVIDERS: PCP Family Medicine; Visit Provider Podiatrist Foot & Ankle Surgery | DX: G62.9 Polyneuropathy, unspecified (principal); L84 Corns and callosities; M20.42 Other hammer toe(s) (acquired), left foot | CPT/HCPCS: 73630 ==

== ENCOUNTER 2023-06-16 08:29 | Emergency (ER) | payer BC, MEDICAID, SELFPAY ==
[2023-06-16 08:34] VITALS: BP 128/86; PULSE 70; RESP 16; TEMP 36.8; O2SAT 99
--- NOTE | 2023-06-16 08:55 | ED_ITS ---
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 This is not work-related. He was not wearing adequate eye protection at times he was using some he does not think it was rated properly for the tool he was using other times he was not using any he is photosensitivity burning sensation in his eyes he was not doing any grinding does not think he got anything in his eyes but they do feel real abhinav and gritty as he describes it. His tetanus is up-to-date within the last year. MD chief complaint: eye pain and eye redness Onset (ago): hour(s) Onset description: sudden Duration: constant Location: both eyes Eye Symptoms: burning, redness, pain, itching and photophobia Place: home Mechanism: UV exposure Severity: moderate If Pain, Quality: burning Associated symptoms: Denies cough, fever(s), headache(s), nausea, neck pain, numbness, rhinorrhea, short of breath, vomiting or weakness Review of Systems Const: Denies: fever(s) or chills ENMT: Denies: throat pain, ear or mastoid pain, nasal discharge or nasal congestion Card: Denies: chest pain Resp: Denies: dyspnea GI: Denies: nausea or vomiting Musc: Denies: neck pain Skin/Breast: Denies: rash or pruritus Neuro: Denies: headache(s) PFS ED PFSH: Medical History Methamphetamine abuse Methamphetamine use disorder, moderate, in sustained remission Peripheral neuropathy Surgical History History of cholecystectomy Family History Father Cancer prostate and stomach Other Diabetes Hypertension Lung disease Denies family history of CAD (coronary artery disease) Clotting disorder Dementia Hyperlipidemia Psychiatric illness Chronic kidney disease (CKD) Anesthesia complication Bleeding disorder Stroke Social History (Updated 02/21/23 @ 10:29 by Concetta Osborne LPN) Smoking and tobacco status: current every day smoker cigarettes Packs smoked per day: 0.25 [ Other cigarette details: 1/4PPD, 10PY] Alcohol intake: never Substance/Drug Use: former Date of last use: sober x 15months (opioids and meth) Lives independently: Yes Marital status: Number of children: 1 service: No Current occupational status: employed Current occupation: [employer] Current occupational exposures/hazards: Yes Current gender identity: Male Special padmini needs: No Agree to transfusion: Yes Physical Exam Const: COMMON NORMALS: no acute distress GENERAL APPEARANCE: cooperative and comfortable ORIENTATION/CONSCIOUSNESS: Yes awake, Yes oriented to person, Yes oriented to place and Yes oriented to time HENMT: COMMON NORMALS: normocephalic, atraumatic and hearing grossly normal bilaterally HEAD & SCALP: normocephalic and atraumatic Eye: OTHER: Mild scleral injection and redness no foreign body bodies noted no significant chemosis moderate tearing no purulent drainage from the eyes. Resp: COMMON NORMALS: normal respiratory effort, No retractions, No use of accessory muscles and clear to auscultation bilaterally AUSCULTATION: clear to auscultation bilaterally Cardio: COMMON NORMALS: regular rate, regular rhythm and No murmurs present (Cardio) RATE: regular rate RHYTHM: regular rhythm Extremity: COMMON NORMALS: normal to inspection, capillary refill normal, no clubbing, cyanosis or edema, no calf tenderness and no pedal edema Neuro: SENSORIUM/ORIENTATION: Yes oriented to person, Yes oriented to place an d Yes oriented to time Skin: COMMON NORMALS: no rashes or lesions noted GENERAL SKIN EXAM: no rashes or lesions noted Course Vital Signs: Vital signs: Vital Signs Temperature 98.3 F 06/16/23 08:34 Pulse Rate 70 06/16/23 08:34 Respiratory Rate 16 06/16/23 08:34 Blood Pressure 128/86 06/16/23 08:34 Pulse Oximetry 99 06/16/23 08:34 Oxygen Delivery Me thod Room Air 06/16/23 08:34 MDM - Eye Problem Medical Decision Making Photokeratitis. Treat with antibiotic ointment to prevent superinfection. Pain medications as needed avoid bright lights follow-up with ophthalmology in 2 to 3 days Case management make arrangements. Discharge Plan Discharge Patient Disposition: Home Clinical Impression: Photokeratoconjunctivitis of both eyes Condition: Stable Prescriptions: New tramadol 50 mg tablet 50 mg PO Q6H PRN (Reason: pain) Qty: 20 0RF bacitracin-polymyxin B 500-10,000 unit/gram ointment 1 applic ophthalmic (eye) QID 3 Days Qty: 3.5 0RF No Action gabapentin 100 mg capsule 200 mg PO TID 30 Days Qty: 180 0RF urea 40 % cream 1 applic topical BID Qty: 28 2RF losartan 50 mg tablet 50 mg PO DAILY Qty: 30 0RF tadalafil [Cialis] 5 mg tablet 5 mg PO DAILY Qty: 30 0RF fluticasone propion-salmeterol [Advair Diskus] 250-50 mcg/dose blister with device 1 inh inhalation BID Qty: 60 0RF Discharge Orders: Discharge ED (Routine); Ordered 06/16/23 Ordered By: Jordan Villalta Referrals: Alonso Lara MD [Primary Care Provider] - Discharge Diet: Usual diet Discharge Activity: Increase activity as tolerated Patient Instructions: Opioid Safety, Pain Management Activity Restrictions/Additional Instructions: Case management make arrangements for follow-up with ophthalmology in 2 to 3 days Coding Level of Care Code ED Business Records Manager for Su Guillen
--- NOTE | 2023-06-16 11:39 | DCPLANNER ---
Addendum entered by Caridad Neumann 06/16/23 14:29: Dr. Ray office called pillowcase cutter and stated that patient would need to contact their office before an appointment could be scheduled. electronics engineering manager called phone number [phone] and left a message to patient to return case management coordinator phone call. Original Note: electronics engineering manager had message to schedule a follow up appointment for patient with ophthalmology. electronics engineering manager faxed patients information to the office of Dr. Ray. Patients information will be reviewed. Clinic will call patient with appointment information.
== END 2023-06-16 09:18 | disposition home or self-care (01) ==
PROVIDERS: Emergency Provider Family Medicine; PCP Family Medicine
DX: H16.293 Other keratoconjunctivitis, bilateral (principal); F17.210 Nicotine dependence, cigarettes, uncomplicated
CPT/HCPCS: 99283

== ENCOUNTER 2023-07-07 20:01 | Emergency (ER) | payer BC, MEDICAID, SELFPAY ==
[2023-07-07 20:10] VITALS: BP 144/92; PULSE 67; RESP 14; TEMP 36.3; O2SAT 99; BMI 28.5
--- NOTE | 2023-07-07 20:58 | W.ED.EAR ---
HPI - Ear Problem General: Chief complaint: Ear Stated complaint: left ear pain, hearing loss, weakness Time Seen by Provider: 07/07/23 20:16 History of Present Illness: 48yo male presents with left ear discomfort and decreased hearing after attending a concert 2 days ago. Patient reports he was sitting on [address] and it was very loud. He states his hearing is muffled, sounds as if he has water in his ear. He reports that he does have intermittent dizziness with position changes. Patient also states that he has had nausea with the dizziness. He denies any falls, trauma, known injury, use of blood thinners, any other concern at this time. Associated symptoms: Reports ear or mastoid pain (muffled, left); Denies fever(s) or neck pain Review of Systems Const: Denies: fever(s), chills or body aches Eyes: Denies: change in vision ENMT: Reports: ear or mastoid pain (muffled, left); Denies: nasal congestion or sinus pain Card: Denies: chest pain Resp: Denies: dyspnea GI: Reports: nausea; Denies: abdominal pain Musc: Denies: neck pain or limited range of motion Neuro: Reports: dizziness (intermittent with position changes) PFSH ED PFSH: Medical History Methamphetamine abuse Methamphetamine use disorder, moderate, in sustained remission Peripheral neuropathy Surgical History History of cholecystectomy Family History Father Cancer prostate and stomach Other Diabetes Hypertension Lung disease Denies family history of CAD (coronary artery disease) Clotting disorder Dementia Hyperlipidemia Psychiatric illness Chronic kidney disease (CKD) Anesthesia complication Bleeding disorder Stroke Social History (Updated 02/21/23 @ 10:29 by Concetta Osborne LPN) Smoking and tobacco status: current every day smoker cigarettes Packs smoked per day: 0.25 [ Other cigarette details: 1/4PPD, 10PY] Alcohol intake: never Substance/Drug Use: former Date of last use: sober x 15months (opioids and meth) Lives independently: Yes Marital status: Number of children: 1 service: No Current occupational status: employed Current occupation: [employer] Current occupational exposures/hazards: Yes Current gender identity: Male Special padmini needs: No Agree to transfusion: Yes Physical Exam Const: COMMON NORMALS: no acute distress, patient oriented x3 and alert GENERAL APPEARANCE: cooperative OTHER: Patient is sitting reclined on the stretcher in no acute distress. He is able to make position changes unassisted. No family is at bedside HENMT: COMMON NORMALS: normocephalic and Normal external nose present HEAD & SCALP: normocephalic; no Joseph's sign, no hematoma and no raccoon eyes NOSE: Normal external nose present TYMPANIC MEMBRANE: TM normal on the right and TM abnormal TM laterality: left Details: bulging, effusion, loss of landmarks and perforation Eye: COMMON NORMALS: conjunctivae normal GENERAL EYE: appearance normal, both eyes and all related structures CONJUNCTIVA: Yes conjunctivae normal Neck/C-Spine: COMMON NORMALS: full ROM Chest: CHEST: Yes Symmetrical chest wall rise Resp: COMMON NORMALS: normal respiratory effort Cardio: COMMON NORMALS: regular rate RATE: regular rate Neuro: COMMON NORMALS: patient oriented x3 and moves all extremities SENSORIUM/ORIENTATION: Yes alert Psych: COMMON NORMALS: cooperative Skin: COMMON NORMALS: no rashes or lesions noted GENERAL SKIN EXAM: no rashes or lesions noted Course Vital Signs: Vital signs: Vital Signs Temperature 97.4 F L 07/07/23 20:10 Pulse Rate 67 07/07/23 20:10 Respiratory Rate 14 07/07/23 20:10 Blood Pressure 144/92 07/07/23 20:10 Pulse Oximetry 99 07/07/23 20:10 Oxygen Delivery Me thod Room Air 07/07/23 20:10 MDM - Ear Medical Decision Making 48yo male here with decreased hearing in the left ear has been ongoing since a concert 2 days ago. Patient reports he sat on the [address] and it was very loud. He reports that he feels as if his hearing is muffled and as if he is underwater. He states that he has had intermittent dizziness with position changes as well as nausea. Patient denies any fever, chills, body aches, fall, trauma, known injury, use of blood thinners. Patient is nontoxic in appearance. Vital signs are stable. Left otitis media noted on exam. Discussed findings with patient. Patient did receive Augmentin and meclizine while in the emergency department. Discussed with patient that the intermittent dizziness with position changes is likely related to the infection. Recommend he increase his fluid intake and take his antibiotics as they are prescribed. Advise he follow-up with primary care, call later this week with an update of symptoms and to discuss or recheck. Recommend return to the emergency department if any rapid worsening symptoms and as needed. Differential Diagnosis Likely foreign body in ear, ruptured TM and cerumen impaction Discharge Plan Discharge Condition: Stable Prescriptions: No Action gabapentin 100 mg capsule 200 mg PO TID 30 Days Qty: 180 0RF urea 40 % cream 1 applic topical BID Qty: 28 2RF losartan 50 mg tablet 50 mg PO DAILY Qty: 30 0RF tadalafil [Cialis] 5 mg tablet 5 mg PO DAILY Qty: 30 0RF fluticasone propion-salmeterol [Advair Diskus] 250-50 mcg/dose blister with device 1 inh inhalation BID Qty: 60 0RF tramadol 50 mg tablet 50 mg PO Q6H PRN (Reason: pain) Qty: 20 0RF Referrals: Alonso Lara MD [Primary Care Provider] - Coding Level of Care Code ED Pasting Inspector for Su Guillen
[2023-07-07] MEDS: amoxicillin-clav 875-125 mg Tablet 1 TAB PO (21:11)
[2023-07-07] MEDS: meclizine 25 mg tablet PO (21:11)
== END 2023-07-07 21:18 | disposition home or self-care (01) ==
PROVIDERS: Emergency Provider Emergency Medicine; PCP Family Medicine
DX: H66.92 Otitis media, unspecified, left ear (principal); F17.210 Nicotine dependence, cigarettes, uncomplicated
CPT/HCPCS: 99283; J8597

== ENCOUNTER 2023-11-14 14:43 | Emergency (ER) | payer BC, MEDICAID, SELFPAY ==
[2023-11-14 14:46] VITALS: BP 146/89; PULSE 73; RESP 18; TEMP 36.6; O2SAT 96; BMI 29.2
--- NOTE | 2023-11-14 14:50 | XR_ITS ---
WS: [id number] Right foot, 3 views, 11/14/2023 Clinical Data: injury Comparison: None. Findings: There is an undisplaced fracture of the distal third of the right second metatarsal. No other fractur es are seen. The joint spaces are normal. The soft tissues are unremarkable. Impression: Undisplaced fracture of distal third of the right second metatarsal.
--- NOTE | 2023-11-14 14:52 | W.ED.LOWEXIN ---
HPI - Extremity Injury (Lower) General: Chief Complaint: Extremity Injury, Upper Stated Complaint: right foot injury Time Seen by Provider: 11/14/23 14:52 Source: patient Mode of arrival: ambulatory Limitations: no limitations History of Present Illness: Patient is a 48-year-old male who presents to ED today for evaluation of a right foot injury. Patient states he was standing on a railroad tie when he accidentally rolled the foot. Reports hearing a crack . States he can bear weight by putting most of his weight on his hindfoot. He denies pain or injury/trauma to the ankle. He has no other complaints or injuries at this time. MD complaint: foot injury Onset (ago): hour(s) Injury: Right: foot Place: home Severity: moderate Relieving factors: immobilization Exacerbating factors: weight bearing, movement and palpation Context: other (twisting/rolled foot) Associated symptoms: Reports no associated symptoms Other symptoms: none Review of Systems Musc: Reports: extremity pain (R foot); Denies: neck pain, back pain, extremity swelling, joint pain or joint swelling Neuro: Reports: difficulty walking (secondary to R foot pain); Denies: numbness in extremities, weakness in extremities or sensory changes PFSH ED PFSH: Medical History Methamphetamine use disorder, moderate, in sustained remission Peripheral neuropathy Methamphetamine abuse Surgical History History of cholecystectomy Family History Father Cancer prostate and stomach Other Diabetes Hypertension Lung disease Denies family history of CAD (coronary artery disease) Clotting disorder Dementia Hyperlipidemia Psychiatric illness Chronic kidney disease (CKD) Anesthesia complication Bleeding disorder Stroke Social History Smoking and tobacco/nicotine status: current every day tobacco/nicotine user cigarettes Packs smoked per day: 0.25 [ Other cigarette details: 1/4PPD, 10PY] Alcohol intake: never Substance/Drug Use: former Date of last use: sober x 15months (opioids and meth) Lives independently: Yes Marital status: Number of children: 1 service: No Current occupational status: employed Current occupation: [employer] Current occupational exposures/hazards: Yes Current gender identity: Male Special padmini needs: No Agree to transfusion: Yes Physical Exam Const: COMMON NORMALS: no acute distress, patient oriented x3, no limitations, alert and well nourished Extremity: COMMON NORMALS: capillary refill normal, no joint enlargement, no clubbing, cyanosis or edema, no calf tenderness and no pedal edema GENERAL: Yes normal exam except as noted RIGHT LOWER EXTREMITY: Yes foot & digits (no tenderness throughout ankle joint) and Yes foot & digits (TTP dorsal R foot without swelling or bony abnormality) Right foot and digits: Yes inspection (normal gross inspection) and Yes neurovascular exam (normal) Neuro: COMMON NORMALS: patient oriented x3, moves all extremities, no focal motor deficits and no sensory deficits noted SENSORIUM/ORIENTATION: Yes alert Course Vital Signs: Vital signs: Vital Signs Temperature 97.9 F 11/14/23 14:46 Pulse Rate 73 11/14/23 14:46 Respiratory Rate 18 11/14/23 14:46 Blood Pressure 146/89 11/14/23 14:46 Pulse Oximetry 96 11/14/23 14:46 Oxygen Delivery Me thod Room Air 11/14/23 14:46 MDM - Extremity Injury (Lower) Medical Decision Making XR personal interpretation showing a second metatarsal fracture. Patient will be splinted and given crutches and case management referral for ortho/podiatry placed. XR interpretation done by ED provider, pending radiology final review Discharge Plan Discharge Patient Disposition: Home Clinical Impression: Closed fracture of second metatarsal bone Qualifiers: Encounter type: initial encounter Fracture alignment: nondisplaced Laterality: right Qualified Code(s): S92.324A - Nondisplaced fracture of second metatarsal bone, right foot, initial encounter for closed fracture Condition: Stable Prescriptions: No Action gabapentin 100 mg capsule 200 mg PO TID 30 Days Qty: 180 0RF urea 40 % cream 1 applic topical BID Qty: 28 2RF losartan 50 mg tablet 50 mg PO DAILY Qty: 30 0RF tadalafil [Cialis] 5 mg tablet 5 mg PO DAILY Qty: 30 0RF fluticasone propion-salmeterol [Advair Diskus] 250-50 mcg/dose blister with device 1 inh inhalation BID Qty: 60 0RF tramadol 50 mg tablet 50 mg PO Q6H PRN (Reason: pain) Qty: 20 0RF amoxicillin-pot clavulanate 875-125 mg tablet 1 tab PO Q12H Qty: 14 0RF meclizine 25 mg tablet 12.5 mg PO TID PRN (Reason: dizziness) Qty: 20 0RF Discharge Orders: Discharge ED (Routine); Ordered 11/14/23 Ordered By: Capri Calderon Referrals: Alonso Lara MD [Primary Care Provider] - Patient Instructions: Fractures - Metatarsal Activity Restrictions/Additional Instructions: As discussed stay in your splint and nonweightbearing until you follow-up with orthopedics/podiatry. Ice and elevate the extremity. You may use [id number] analgesics as needed for discomfort. Coding Level of Care Code ED Workday Manager for Su Guillen
--- NOTE | 2023-11-14 16:52 | DCPLANNER ---
Referral was sen to podiatry on 11/14/23 at 1654. Clinic to contact patient
== END 2023-11-14 15:45 | disposition home or self-care (01) ==
PROVIDERS: Emergency Provider Physician Assistant; PCP Family Medicine
DX: S92.324A Nondisplaced fracture of second metatarsal bone, right foot, initial encounter for closed fracture (principal); F17.210 Nicotine dependence, cigarettes, uncomplicated; X50.1XXA Overexertion from prolonged static or awkward postures, initial encounter
CPT/HCPCS: 29515; 73630; 99283; E0114

== ENCOUNTER 2025-04-20 10:07 | Inpatient (IN) | payer MEDICAID, SELFPAY ==
[2025-04-20] VITALS (9 sets, daily range): BP systolic 120–162; BP diastolic 79–105; PULSE 60–87; RESP 16–17; TEMP 36.4–36.7; O2SAT 97–99; BMI 28.3
--- NOTE | 2025-04-20 10:30 | USCV_ITS ---
Ganga Hernandez Age: 49 Gender: M : 1975 Exam Date: 04/20/2025 11:01 Ordering Phys: Carla Nguyen MD Technologist: [employer] Exam Location: [facility] [place] Indication: rt leg pain and swelling PROCEDURES: Venous duplex imaging was performed in only the right lower extremity. The following venous structures were evaluated: common femoral vein, profunda vein, proximal portion of the greater saphenous vein, superficial femoral vein, and the popliteal vein. In addition, the posterior tibial and peroneal trunk were evaluated. On the right side, the common femoral, superficial femoral, profunda femoral, popliteal, posterior tibial, greater saphenous veins and the peroneal trunk were identified and interrogated in the standard fashion. These veins were found to be easily compressible with spontaneous blood flow. No evidence of insufficiency or thrombus noted. FINDINGS: Normal 2-D Doppler and augmentation and compressibility throughout the lower extremity venous structures. Additional imaging through the proximal calf veins also reveals no thrombus. Limited evaluation of the greater saphenous vein is patent with no thrombus. There are enlarged lymphnodes in the groin. CONCLUSIONS No evidence of right lower extremity DVT. Non specific enlarged lymph nodes right groin may be reactive Viral Rodríguez MD (Electronically Signed) Final Date: 20 Apr 2025 13:20 S
--- NOTE | 2025-04-20 10:31 | XRR_ITS ---
PROCEDURE INFORMATION: Exam: XR Chest Exam date and time: 04/20/2025 10:32 AM Age: 49 years old Clinical indication: Other: Edema TECHNIQUE: Imaging protocol: Radiologic exam of the chest. Views: 1 view. COMPARISON: CT angio chest PE prot [id number] 05/27/2021 2:32 PM FINDINGS: Lungs: No focal lung consolidation. Pleural spaces: No pleural effusion. No pneumothorax. Heart/Mediastinum: No cardiomegaly. Bones/joints: No acute bony abnormality. XR/XR chest 1V portable [id number] IMPRESSION: No focal lung consolidation.
--- NOTE | 2025-04-20 10:33 | W.ED.GENADLT ---
HPI - General Adult General: Chief complaint: General Medical Stated complaint: rt leg swollen Time Seen by Provider: 04/20/25 10:17 History of Present Illness: 49-year-old male with a history of substance abuse now on methadone therapy, hypertension and medical noncompliance who presents emergency room with right lower extremity redness swelling and pain. He was seen in an urgent care and placed on Bactrim and Lasix 2 days ago and told to go to the emergency room but it improved. He says it is actually worsened in that time. No history of heart failure. No coronary disease. He has not been taking his hypertension meds in several years now. No chest pain. No shortness of breath. No abdominal pain. No nausea or vomiting. No systemic fevers. No history of diabetes. Related Data Home Medications ?Medication ?Instructions ?Recorded ?Confirmed methadone 40 mg soluble tablet 90 mg PO DAILY 04/18/25 04/20/25 ibuprofen 200 mg tablet (Advil) 400 mg PO Q6H PRN Fever Or Pain 04/20/25 04/20/25 Previous Rx's ?Medication ?Instructions ?Recorded CAM walker #1 ea 11/21/23 furosemide 40 mg tablet (Lasix) 40 mg PO QAM #5 tabs 04/18/25 sulfamethoxazole 800 1 tab PO BID #14 tabs 04/18/25 mg-trimethoprim 160 mg tablet (Bactrim DS) Allergies Allergy/AdvReac Type Severity Reaction Status Date / Time No Known Allergies Allergy Verified 04/18/25 17:29 Review of Systems Narrative: Constitutional symptoms: Negative except as documented in HPI. Skin symptoms: Negative except as documented in HPI. Eye symptoms: Negative except as documented in HPI. ENMT symptoms: Negative except as documented in HPI. Respiratory symptoms: Negative except as documented in HPI. Cardiovascular symptoms: Negative except as documented in HPI. Gastrointestinal symptoms: Negative except as documented in HPI. Genitourinary symptoms: Negative except as documented in HPI. Musculoskeletal symptoms: Negative except as documented in HPI. Neurologic symptoms: Negative except as documented in HPI. Psychiatric symptoms: Negative except as documented in HPI. Endocrine symptoms: Negative except as documented in HPI. [facility] ED PFSH: Medical History Methamphetamine use disorder, moderate, in sustained remission Peripheral neuropathy Methamphetamine abuse Surgical History History of cholecystectomy Family History Father Cancer prostate and stomach Other Diabetes Hypertension Lung disease Denies family history of CAD (coronary artery disease) Clotting disorder Dementia Hyperlipidemia Psychiatric illness Chronic kidney disease (CKD) Anesthesia complication Bleeding disorder Stroke Social History Smoking and tobacco/nicotine status: current every day tobacco/nicotine user cigarettes Packs smoked per day: 0.25 [ Other cigarette details: 1/4PPD, 10PY] Alcohol intake: never Substance/Drug Use: former Date of last use: sober x 15months (opioids and meth) Lives independently: Yes Marital status: Number of children: 1 service: No Current occupational status: employed Current occupation: [employer] Current occupational exposures/hazards: Yes Current gender identity: Male Special padmini needs: No Agree to transfusion: Yes Physical Exam Narrative: EXAM NARRATIVE: General: Alert, no acute distress. Skin: Warm, dry. Circumferential warmth, swelling and erythema of the right lower extremity from above the ankle to just below the knee. Tender to palpation. Head: Normocephalic, atraumatic. Neck: Supple, trachea midline. Eye: Extraocular movements are intact. Ears, nose, mouth and throat: mucosa moist. Cardiovascular: Regular, Normal peripheral perfusion. Respiratory: Lungs are clear to auscultation, respirations are non-labored, breath sounds are equal, Symmetrical chest wall expansion. Gastrointestinal: Soft, Nontender, Non distended Musculoskeletal: Normal ROM, no deformity. Neurological: Alert and oriented, No focal neurological deficit observed. Psychiatric: Cooperative, appropriate mood & affect. Course Vital Signs: Vital signs: Vital Signs Pulse Rate 80 04/20/25 10:51 Respiratory Rate 16 04/20/25 10:51 Blood Pressure 162/105 04/20/25 10:51 Pulse Oximetry 98 04/20/25 10:51 Oxygen Delivery Me thod Room Air 04/20/25 10:21 MDM - General Adult Medical Decision Making Medical decision making: Differential diagnosis including but not limited to and based on the above HPI, review of systems and physical exam in this patient with lower extremity swelling and redness: Cellulitis, DVT, osteomyelitis, venous stasis dermatitis. Orders placed to evaluate differential diagnosis based on the above differential, HPI and physical exam Chest x-ray: No acute process. No infiltrate. No pneumothorax. This was reviewed and interpreted by myself the emergency room physician. I also reviewed the radiology report. Lab Review: Laboratory results were reviewed and interpreted by myself the emergency room physician. Mild leukocytosis. No anemia. No renal failure. ESR is slightly elevated at 12 CRP is elevated at 46. proBNP is negative. Ultrasound of lower extremity: No DVT. There is some lymphadenopathy reported. This was reviewed and interpreted by myself the emergency room physician. I also reviewed the radiology report. I reviewed the patient's medical record. Reexamination: Patient remained stable. No increased work of breathing. No altered mental status. No focal motor deficits. Consultation: I spoke with Dr. Servin who is on-call for the hospital service who agrees to admission. Assessment and plan: Lower extremity cellulitis Lower extremity edema ?IV vancomycin and cefepime in the emergency room. Failed outpatient therapy. -I discussed the patient with the hospitalist on-call who is admitting the patient. - Discussed findings and plan with patient. Answered any questions. - All laboratory values were reviewed and interpreted personally by myself, the ER physician - All imaging was reviewed and interpreted personally by myself, the ER physician. - Evaluation and treatment of this problem were appropriate in the emergency setting Lab Data 04/20/25 10:40 04/20/25 10:40 Radiology Impressions Chest X-Ray 04/20/25 10:31 IMPRESSION: No focal lung consolidation. Laboratory Results WBC 10.78 10^3/uL (3.29-11.43) 04/20/25 10:40 RBC 4.75 10^6/uL (3.85-5.65) 04/20/25 10:40 Hgb 14.10 g/dL (11.27-16.99) 04/20/25 10:40 Hct 42.2 % (37-53) 04/20/25 10:40 MCV 88.8 fl (82-101) 04/20/25 10:40 MCH 29.7 pg (27-33) 04/20/25 10:40 MCHC 33.4 g/dL (30-55) 04/20/25 10:40 RDW 12.7 % (12.1-15.1) 04/20/25 10:40 Plt Count 248 10^3/cmm (157-399) 04/20/25 10:40 MPV 10.4 fL (7.4-10.4) 04/20/25 10:40 Neut % (Auto) 41.8 % 04/20/25 10:40 Lymph % (Auto) 48.1 % 04/20/25 10:40 [place] % (Auto) 7.1 % 04/20/25 10:40 Eos % (Auto) 2.1 % 04/20/25 10:40 Baso % (Auto) 0.6 % 04/20/25 10:40 Neut # (Auto) 4.51 10^3/uL (1.8-7.7) 04/20/25 10:40 Lymph # (Auto) 5.2 10^3/uL (0.8-4.8) H 04/20/25 10:40 [place] # (Auto) 0.8 10^3/uL (0.2-0.9) 04/20/25 10:40 Eos # (Auto) 0.2 10^3/uL (0.0-0.8) 04/20/25 10:40 Baso # (Auto) 0.1 10^3/uL (0.0-0.1) 04/20/25 10:40 Nucleated RBC % (auto) 0 % 04/20/25 10:40 Nucleated RBCs # 0.0 /100WBC 04/20/25 10:40 ESR 12 mm/hr (0-10) H 04/20/25 10:40 Sodium 134 mmol/L (136-145) L 04/20/25 10:40 Potassium 3.4 mmol/L (3.5-5.1) L 04/20/25 10:40 Chloride 98 mmol/L (98-107) 04/20/25 10:40 Carbon Dioxide 24 mmol/L (22-29) 04/20/25 10:40 Anion Gap 15.4 (5-19) 04/20/25 10:40 BUN 11 mg/dL (6-20) 04/20/25 10:40 Creatinine 0.9 mg/dL (0.7-1.2) 04/20/25 10:40 GFR Calculation 89.7 mL/min (90-130) L 04/20/25 10:40 Glucose 91 mg/dL (65-115) 04/20/25 10:40 Calculated Osmolality 277 mOsm/kg (285-295) L 04/20/25 10:40 Lactic Acid 1.2 mmol/L (0.5-2.2) 04/20/25 10:40 Calcium 8.6 mg/dL (8.5-10.5) 04/20/25 10:40 Total Bilirubin 0.4 mg/dL (0.15-1.2) 04/20/25 10:40 AST 44 U/L (0-40) H 04/20/25 10:40 ALT 48 U/L (0-41) H 04/20/25 10:40 Alkaline Phosphatase 90 U/L (40-130) 04/20/25 10:40 C-Reactive Protein 46.2 mg/L (0.0-4.9) H 04/20/25 10:40 NT-Pro-B Natriuret Pep < 36 pg/mL (0-125) 04/20/25 10:40 Total Protein 7.8 g/dL (6.6-8.7) 04/20/25 10:40 Albumin 3.6 g/dL (3.5-5.2) 04/20/25 10:40 Globulin 4.2 g/dL (1.3-4.6) 04/20/25 10:40 All radiology interpretation(s) finalized by discharge Discharge Plan Discharge Patient Disposition: Admitted As Inpatient Clinical Impression: Cellulitis, Edema of right lower leg Condition: Stable Coding Level of Care Code ED Wheel And Pinion Inspector for Su Guillen
[2025-04-20 10:53] LABS: Basophils # 0.1 10^3/uL (0.0-0.1); Basophils % 0.6 %; Eosinophils # 0.2 10^3/uL (0.0-0.8); Eosinophils % 2.1 %; Hematocrit 42.2 % (37-53); Lymphocytes # 5.2 10^3/uL (0.8-4.8); Lymphocytes % 48.1 %; Mean Corpuscular HGB Conc 33.4 g/dL (30-55); Mean Corpuscular Hemoglobin 29.7 pg (27-33); Mean Corpuscular Volume 88.8 fl (82-101); Mean Platelet Volume 10.4 fL (7.4-10.4); Monocytes # 0.8 10^3/uL (0.2-0.9); Monocytes % 7.1 %; Neutrophils # 4.51 10^3/uL (1.8-7.7); Neutrophils % 41.8 %; Nucleated Red Blood Cells % 0 %; Platelet Count 248 10^3/cmm (157-399); Red Blood Count 4.75 10^6/uL (3.85-5.65); Red Cell Distribution Width 12.7 % (12.1-15.1); White Blood Count 10.78 10^3/uL (3.29-11.43)
[2025-04-20 10:57] LABS: Erythrocyte Sedimentation Rate 12 mm/hr (0-10)
[2025-04-20 11:10] LABS: Lactic Sepsis W/Reflex 1.2 mmol/L (0.5-2.2)
[2025-04-20 11:21] LABS: Alanine Aminotransferase 48 U/L (0-41); Albumin Level 3.6 g/dL (3.5-5.2); Alkaline Phosphatase 90 U/L (40-130); Anion Gap 15.4 (5-19); Aspartate Amino Transferase 44 U/L (0-40); Blood Urea Nitrogen 11 mg/dL (6-20); C Reactive Protein 46.2 mg/L (0.0-4.9); Calcium 8.6 mg/dL (8.5-10.5); Carbon Dioxide 24 mmol/L (22-29); Chloride 98 mmol/L (98-107); Creatinine Clr Calc Pharmacy 113.8966; Globulin 4.2 g/dL (1.3-4.6); Glomerular Filtration Rate 89.7 mL/min (90-130); Glucose 91 mg/dL (65-115); NT Pro B Type Natriuretic Pept < 36 pg/mL (0-125); Osmolality Calculated 277 mOsm/kg (285-295); Potassium 3.4 mmol/L (3.5-5.1); Sodium 134 mmol/L (136-145); Total Bilirubin 0.4 mg/dL (0.15-1.2); Total Protein 7.8 g/dL (6.6-8.7)
[2025-04-20] MEDS: cefepime 2,000 mg SDV 2000 MG IVP (12:12)
--- NOTE | 2025-04-20 12:12 | PM.HP ---
Providers/Chief Complaint Primary Care Provider: Alonso Lara MD Chief Complaint: rt leg swollen History of Present Illness Ganga Hernandez is a 49 year old male with past medical history of hypertension, drug abuse in remission, hepatitis C presents to the ER because of worsening swelling in his leg along with pain for last 2 days. Patient states symptoms started around 4 days ago. Denies any injury, bites other than possible scratches from his pet dogs. He had gone to his PCP 2 days ago for the same symptoms for which she was given Bactrim without any improvement with worsening of pain in last 24 hours hence presented to the ER. Review of Systems General: Reports: 10 or more systems reviewed and unremarkable except in HPI and below Const: Denies: fever(s), chills, body aches, change in appetite, change in weight, malaise, night sweats, diaphoresis, change in sleep pattern, daytime sleepiness or snoring Eyes: Denies: change in vision, blurry vision, photophobia, eye discomfort or eye discharge ENMT: Denies: throat pain, enlarged tonsils, hoarseness, mouth pain, oral sores, dry mouth, tinnitus, nasal congestion or post nasal drip Card: Denies: chest pain, palpitations, irregular heart rhythm, edema, swelling of feet/ankles, lightheadedness, syncope, pre-syncope, dyspnea on exertion, orthopnea, leg pain with exertion or acrocyanosis Resp: Denies: dyspnea, productive cough, non-productive cough, wheezing, stridor, pain on inspiration, change in phlegm color, hemoptysis or chest congestion GI: Denies: abdominal pain, nausea, vomiting, hematemesis, coffee ground emesis, dysphagia, heartburn, diarrhea, constipation, bloating, GI cramping, change in bowel habits, pain on defecation, hematochezia or melena : Denies: flank pain, difficulty urinating, dysuria, urinary frequency, urinary urgency, urinary hesitancy, urinary dribbling, difficulty starting urination, change in urine stream, nocturia or hematuria Musc: Denies: neck pain, back pain, extremity pain, joint pain, joint swelling, joint redness, joint stiffness or limited range of motion Neuro: Denies: headache(s), numbness in extremities, weakness in extremities, sensory changes, lack of coordination, difficulty walking, frequent falls, dizziness, vertigo, confusion, Slurred speech present, difficulty communicating thoughts or seizure-like activity Psych: Denies: anxiety, depression, mood swings, panic attacks, hopelessness or irritability Endo: Denies: polyuria, polydipsia, tired all the time, cold intolerance, excessive sweating, flushing or heat intolerance Melo/Lymph: Denies: easy bruising or easy bleeding All/Imm: Denies: tongue swelling, facial swelling or acute wheezing Medications/Allergies Home Medications ?Medication ?Instructions ?Recorded ?Confirmed ?Last Taken ?Type CAM walker #1 ea 11/21/23 04/20/25 Unknown Rx furosemide 40 mg tablet (Lasix) 40 mg PO QAM #5 tabs 04/18/25 04/20/25 04/20/25 09:00 Rx methadone 40 mg soluble tablet 90 mg PO DAILY 04/18/25 04/20/25 04/19/25 History sulfamethoxazole 800 1 tab PO BID #14 tabs 04/18/25 04/20/25 04/20/25 09:00 Rx mg-trimethoprim 160 mg tablet (Bactrim DS) ibuprofen 200 mg tablet (Advil) 400 mg PO Q6H PRN Fever Or Pain 04/20/25 04/20/25 04/17/25 History Allergies Allergy/AdvReac Type Severity Reaction Status Date / Time No Known Allergies Allergy Verified 04/18/25 17:29 PFSH Acute PFSH: Medical History (Updated 04/20/25 @ 12:14 by Ok Servin MD) Hepatitis C Methamphetamine use disorder, moderate, in sustained remission Peripheral neuropathy Methamphetamine abuse Surgical History History of cholecystectomy Family History Father Cancer prostate and stomach Other Diabetes Hypertension Lung disease Denies family history of CAD (coronary artery disease) Clotting disorder Dementia Hyperlipidemia Psychiatric illness Chronic kidney disease (CKD) Anesthesia complication Bleeding disorder Stroke Social History Smoking and tobacco/nicotine status: current every day tobacco/nicotine user cigarettes Packs smoked per day: 0.25 [ Other cigarette details: 1/4PPD, 10PY] Alcohol intake: never Substance/Drug Use: former Date of last use: sober x 15months (opioids and meth) Lives independently: Yes Marital status: Number of children: 1 service: No Current occupational status: employed Current occupation: [employer] Current occupational exposures/hazards: Yes Current gender identity: Male Special padmini needs: No Agree to transfusion: Yes Vitals/I&O/Wt Last Vital Signs Pulse 80 04/20/25 10:51 Resp 16 04/20/25 10:51 BP 162/105 04/20/25 10:51 Pulse Ox 98 04/20/25 10:51 O2 Del Method Room Air 04/20/25 10:21 Weight last 48 hrs Weight 89.811 kg Physical Exam Narrative: General: No acute distress, AO x3 HEENT: PERRLA, pupils bilaterally equal and reactive Chest: Normal vesicular breath sounds, no added sounds, equal good air entry bilaterally CVS: S1-S2 regular, no murmurs, no tachycardia, no gallops, no rubs Abdomen: Soft, nontender, no organomegaly, bowel sounds present Neuro: No focal deficits, no facial deformity, AO x3, power 5/5 in all limbs Skin: OTHER: Data 04/21/25 05:41 04/21/25 05:41 Micro: Microbiology 04/20/25 10:40 Blood Culture - Preliminary Blood SPECIMEN COLLECTED 04/20/25 10:48 Blood Culture - Preliminary Blood SPECIMEN COLLECTED A&P Assessment and plan (1) Cellulitis: Failure to outpatient treatment. Was given Bactrim as an outpatient. Check blood culture. Lower limb Doppler reportedly negative for DVT. Appreciate ESR, CRP. Check MRSA swab, follow-up blood culture. Trend procalcitonin. Lactate pending. Trauma empirically start on IV vancomycin and Zosyn. Discontinue vancomycin if MRSA swab negative. If does not improve in next 24 hours will plan to do CT imaging of the leg to rule out any abscess. (2) Venous stasis dermatitis of right lower extremity: (3) Essential hypertension: Goal blood pressure less than 140/90 mmHg. Blood pressures elevated on admission. Start on amlodipine 10 mg daily for now. (4) Methamphetamine use disorder, moderate, in sustained remission: Check urine drug screen. (5) Hepatitis C: Check hepatitis panel. Check HIV. (6) Failure of outpatient treatment: Given Bactrim as an outpatient. No improvement. Plan Full code Regular diet Protonix for PUD prophylaxis Heparin 5000 every 12 hourly for DVT prophylaxis. PDMP PDMP Reviewed: Not Reviewed Attestations Medical Necessity Statement*: Admission 1 and 2 midnights for management of cellulitis of leg with failure to outpatient treatment. Diagnoses Cellulitis L03.90 Venous stasis dermatitis of right lower extremity I87.2 Essential hypertension I10 Methamphetamine use disorder, moderate, in sustained remission F15.21 Acute hepatitis C virus infection without hepatic coma B17.10 Hepatic coma status: without hepatic coma Viral hepatitis chronicity: acute Failure of outpatient treatment Z78.9
[2025-04-20] MEDS: vancomycin 1,750 MG/350 ML PIGGYBACK 175 MG IV (12:15)
[2025-04-20 12:43] LABS: Procalcitonin 0.56 ng/mL (0-0.5)
[2025-04-20 13:24] LABS: Hepatitis A Antibody IgM Non-Reactive (Nonreactive); Hepatitis B Surface Antigen Non-Reactive (Nonreactive)
--- NOTE | 2025-04-20 14:25 | PHA.VACGOAL ---
Vancomycin Goal - Goal Vancomycin Goal:: 15-20 mg/L Vancomycin Indication:: Osteo - Therapy Current therapy:: Pip/Tazo Day of therpy:: Day []of [] . Actual body weight (kg): 89.675 kg - Data Labs: WBC 10.78 10^3/uL (3.29-11.43) 04/20/25 10:40 RBC 4.75 10^6/uL (3.85-5.65) 04/20/25 10:40 Hgb 14.10 g/dL (11.27-16.99) 04/20/25 10:40 Hct 42.2 % (37-53) 04/20/25 10:40 MCV 88.8 fl (82-101) 04/20/25 10:40 MCH 29.7 pg (27-33) 04/20/25 10:40 MCHC 33.4 g/dL (30-55) 04/20/25 10:40 RDW 12.7 % (12.1-15.1) 04/20/25 10:40 Sodium 134 mmol/L (136-145) L 04/20/25 10:40 Potassium 3.4 mmol/L (3.5-5.1) L 04/20/25 10:40 Chloride 98 mmol/L (98-107) 04/20/25 10:40 Carbon Dioxide 24 mmol/L (22-29) 04/20/25 10:40 Anion Gap 15.4 (5-19) 04/20/25 10:40 BUN 11 mg/dL (6-20) 04/20/25 10:40 Creatinine 0.9 mg/dL (0.7-1.2) 04/20/25 10:40 GFR Calculation 89.7 mL/min (90-130) L 04/20/25 10:40 Treatment plan:: new consult Regimen:: New start vancomycin for osteomyelitis/cellulitis. No prior vancomycin history found. Load dose of 1750 mg ordered. Started on maintenance dose of 1500 mg q12h.
[2025-04-20 14:30] LABS: Estmated Average Glucose 114; Hemoglobin A1C 5.6 % (4.0-6.0)
[2025-04-20 14:40] LABS: HIV 1 & 2 Antibody Non-Reactive (Non-Reactiv); HIV 1 & 2 Antigen Non-Reactive (Non-Reactiv)
[2025-04-20 14:44] LABS: Iron 40 ug/dL (59-158); Percent Saturation 14.8 % (20-50); Total Iron Binding Capacity 270 mcg/dl; Unsaturated Iron Binding 230 ug/dL (112-347); Vitamin B12 341 pg/mL (232-1245)
[2025-04-20] MEDS: pantoprazole DR 40 mg Tablet PO (14:47)
[2025-04-20] MEDS: methadone 10 mg Tablet 60 MG PO (14:48)
[2025-04-20] MEDS: heparin 5,000 unit/mL INJ 1 mL 5000 UNIT SUBCUT (14:48)
[2025-04-20] MEDS: piperacillin-tazobactam 3.375 GM in sodium chloride 0.9% (plus) 50 ML IV ×2 (14:48→21:34)
[2025-04-20 15:58] LABS: MRSA PCR OZH (swab) NOT DETECTED (Negative)
[2025-04-20] MEDS: docusate sodium 100 mg Capsule PO (17:07)
[2025-04-20] MEDS: vancomycin 1,500 MG/300 ML PIGGYBACK 200 MG IV (23:45)
[2025-04-21] VITALS (8 sets, daily range): BP systolic 117–130; BP diastolic 68–77; PULSE 60–72; RESP 16–18; TEMP 36.4–37.1; O2SAT 95–98
[2025-04-21] MEDS: heparin 5,000 unit/mL INJ 1 mL 5000 UNIT SUBCUT ×2 (03:40→14:57)
[2025-04-21 06:03] LABS: Basophils # 0.1 10^3/uL (0.0-0.1); Basophils % 0.6 %; Eosinophils # 0.5 10^3/uL (0.0-0.8); Eosinophils % 4.9 %; Hematocrit 41.3 % (37-53); Lymphocytes # 3.8 10^3/uL (0.8-4.8); Lymphocytes % 37.9 %; Mean Corpuscular HGB Conc 32.7 g/dL (30-55); Mean Corpuscular Volume 91.8 fl (82-101); Mean Platelet Volume 10.6 fL (7.4-10.4); Monocytes # 0.7 10^3/uL (0.2-0.9); Monocytes % 7.3 %; Neutrophils # 4.86 10^3/uL (1.8-7.7); Neutrophils % 48.8 %; Nucleated Red Blood Cells % 0 %; Platelet Count 220 10^3/cmm (157-399); Red Cell Distribution Width 12.9 % (12.1-15.1); White Blood Count 9.97 10^3/uL (3.29-11.43)
[2025-04-21] MEDS: piperacillin-tazobactam 3.375 GM in sodium chloride 0.9% (plus) 50 ML IV ×3 (06:05→22:38)
[2025-04-21 06:27] LABS: Alanine Aminotransferase 37 U/L (0-41); Albumin Level 3.1 g/dL (3.5-5.2); Alkaline Phosphatase 73 U/L (40-130); Anion Gap 15.1 (5-19); Aspartate Amino Transferase 28 U/L (0-40); Blood Urea Nitrogen 11 mg/dL (6-20); Calcium 8.6 mg/dL (8.5-10.5); Carbon Dioxide 22 mmol/L (22-29); Chloride 102 mmol/L (98-107); Creatinine Clr Calc Pharmacy 111.8823; Glomerular Filtration Rate 89.7 mL/min (90-130); Glucose 91 mg/dL (65-115); Magnesium 1.9 mg/dL (1.7-2.3); Osmolality Calculated 279 mOsm/kg (285-295); Phosphorus 2.7 mg/dL (2.5-4.5); Potassium 4.1 mmol/L (3.5-5.1); Sodium 135 mmol/L (136-145); Total Bilirubin 0.4 mg/dL (0.15-1.2); Total Protein 7.1 g/dL (6.6-8.7)
[2025-04-21 06:34] LABS: Chol HDL Ratio 3.35 mg/dL (1.0-5.00); Cholesterol 104 mg/dL (0-200); HDL Cholesterol 31 mg/dL (60-100); LDL Cholesterol Calculated 58 mg/dL (50-129); LDL HDL Ratio 1.87 RATIO (0.00-3.22); Triglycerides 75 mg/dL (0-150)
[2025-04-21 06:36] LABS: Procalcitonin 0.44 ng/mL (0-0.5)
[2025-04-21 06:44] LABS: Folate Level 8.3 ng/mL (4.5-32.2)
[2025-04-21] MEDS: pantoprazole DR 40 mg Tablet PO (08:20)
[2025-04-21] MEDS: methadone 10 mg Tablet 90 MG PO (08:21)
[2025-04-21] MEDS: docusate sodium 100 mg Capsule PO ×2 (08:21→17:01)
--- NOTE | 2025-04-21 10:30 | P.PN_ITS ---
Subjective 2 Subjective: No acute vents overnight. States he is feeling slightly better. States pain is improving. Vitals/I&O/Wt Last Vital Signs Temp 98.7 F 04/21/25 07:57 Pulse 66 04/21/25 07:57 Resp 18 04/21/25 07:57 BP 117/72 04/21/25 07:57 Pulse Ox 96 04/21/25 07:57 O2 Del Method Room Air 04/21/25 07:57 04/20/25 04/21/25 04/21/25 22:59 06:59 14:59 Intake Total 530 / 880 350 / 1230 240 / 240 Output Total 250 / 250 500 / 500 Balance 280 / 630 350 / 980 -260 / -260 Weight last 48 hrs Weight 89.675 kg Weight 89.811 kg Physical Exam 2 Narrative: General: No acute distress, AO x3 HEENT: PERRLA, pupils bilaterally equal and reactive Chest: Normal vesicular breath sounds, no added sounds, equal good air entry bilaterally CVS: S1-S2 regular, no murmurs, no tachycardia, no gallops, no rubs Abdomen: Soft, nontender, no organomegaly, bowel sounds present Neuro: No focal deficits, no facial deformity, AO x3, power 5/5 in all limbs Skin: OTHER: Data 04/21/25 05:41 04/21/25 05:41 Micro: Microbiology 04/20/25 10:40 Blood Culture - Preliminary Blood SPECIMEN COLLECTED 04/20/25 10:48 Blood Culture - Preliminary Blood SPECIMEN COLLECTED A&P Assessment and plan (1) Cellulitis: Failure to outpatient treatment. Was given Bactrim as an outpatient. Slight improvement on IV antibiotics with decreased edema. Continues to remain warm and angry looking. Appreciate ESR, CRP. Follow-up blood cultures. MRSA swab negative. Appreciate negative procalcitonin trend. Lactate negative. For now continue with empiric vancomycin and Zosyn. Will continue vancomycin for 24 more hours. Lower limb Dopplers negative for DVT. (2) Venous stasis dermatitis of right lower extremity: (3) Essential hypertension: Goal blood pressure less than 140/90 mmHg. Blood pressure stable for now. Hold off on amlodipine. (4) Methamphetamine use disorder, moderate, in sustained remission: Urine drug screen not sent. UA still pending. (5) Hepatitis C: Negative HIV and hepatitis panel. Recheck as patient denies being treated for hepatitis C. (6) Failure of outpatient treatment: Given Bactrim as an outpatient. No improvement. Plan Full code Regular diet Protonix for PUD prophylaxis Heparin 5000 every 12 hourly for DVT prophylaxis. PDMP PDMP Reviewed: Not Reviewed Attestations 2 Medical Necessity Statement*: Requires further hospitalization for management of cellulitis of lower limb with failure to outpatient treatment. Diagnoses Cellulitis L03.90 Venous stasis dermatitis of right lower extremity I87.2 Essential hypertension I10 Methamphetamine use disorder, moderate, in sustained remission F15.21 Acute hepatitis C virus infection without hepatic coma B17.10 Viral hepatitis chronicity: acute Hepatic coma status: without hepatic coma Failure of outpatient treatment Z78.9
[2025-04-21 11:10] LABS: Hepatitis C Virus Antibody Reactive (Nonreactive)
[2025-04-21] MEDS: vancomycin 1,500 MG/300 ML PIGGYBACK 200 MG IV (13:17)
[2025-04-21 13:55] LABS: Hepatitis B Surface AB 279.7 (11.5-1000)
[2025-04-21 13:56] LABS: Hepatitis B Core AB, Total Reactive (Nonreactive)
[2025-04-21 13:57] LABS: Hepatitis C Virus Antibody Reactive (Nonreactive)
[2025-04-22] VITALS (9 sets, daily range): BP systolic 115–132; BP diastolic 71–82; PULSE 59–85; RESP 14–18; TEMP 36.4–37.1; O2SAT 95–98
[2025-04-22] MEDS: vancomycin 1,500 MG/300 ML PIGGYBACK 200 MG IV (01:57)
[2025-04-22] MEDS: heparin 5,000 unit/mL INJ 1 mL 5000 UNIT SUBCUT ×2 (01:58→15:38)
[2025-04-22 06:13] LABS: Basophils # 0.1 10^3/uL (0.0-0.1); Basophils % 0.6 %; Eosinophils # 0.5 10^3/uL (0.0-0.8); Eosinophils % 5.5 %; Hematocrit 39.1 % (37-53); Lymphocytes # 4.7 10^3/uL (0.8-4.8); Lymphocytes % 49.5 %; Mean Corpuscular Volume 90.9 fl (82-101); Mean Platelet Volume 10.9 fL (7.4-10.4); Monocytes # 0.6 10^3/uL (0.2-0.9); Monocytes % 6.1 %; Neutrophils # 3.58 10^3/uL (1.8-7.7); Neutrophils % 37.6 %; Nucleated Red Blood Cells % 0 %; Platelet Count 236 10^3/cmm (157-399); White Blood Count 9.52 10^3/uL (3.29-11.43)
[2025-04-22] MEDS: piperacillin-tazobactam 3.375 GM in sodium chloride 0.9% (plus) 50 ML IV ×3 (06:21→22:23)
[2025-04-22 06:38] LABS: Alanine Aminotransferase 27 U/L (0-41); Albumin Level 3.2 g/dL (3.5-5.2); Alkaline Phosphatase 77 U/L (40-130); Anion Gap 12.9 (5-19); Aspartate Amino Transferase 21 U/L (0-40); Blood Urea Nitrogen 8 mg/dL (6-20); Calcium 8.5 mg/dL (8.5-10.5); Carbon Dioxide 26 mmol/L (22-29); Chloride 101 mmol/L (98-107); Globulin 3.9 g/dL (1.3-4.6); Glomerular Filtration Rate 89.7 mL/min (90-130); Glucose 97 mg/dL (65-115); Magnesium 1.8 mg/dL (1.7-2.3); Osmolality Calculated 280 mOsm/kg (285-295); Phosphorus 2.6 mg/dL (2.5-4.5); Potassium 3.9 mmol/L (3.5-5.1); Sodium 136 mmol/L (136-145); Total Bilirubin 0.3 mg/dL (0.15-1.2); Total Protein 7.1 g/dL (6.6-8.7)
[2025-04-22] MEDS: methadone 10 mg Tablet 90 MG PO (08:36)
[2025-04-22] MEDS: docusate sodium 100 mg Capsule PO ×2 (08:37→17:11)
[2025-04-22] MEDS: pantoprazole DR 40 mg Tablet PO (08:37)
[2025-04-22 09:07] LABS: Bilirubin Urine Negative (Negative); Blood Urine Negative (Negative); Glucose Urine UA Negative (Normal); Ketones Urine Negative (Negative); Leukocyte Esterase Urine Negative (Negative); Nitrate Urine Negative (Negative); Protein Urine Negative (Negative); Specific Gravity, Urine 1.019 (1.005-1.030); Urine Appearance Clear (CLEAR); Urine Color Yellow (Yellow); pH Urine 5.5 (5-7)
[2025-04-22 09:12] LABS: Add Urine Microscopic? YES; Bacteria Urine None Seen /hpf; RBC Urine 0-2 /hpf (0-2); Squamous Epithelial Cell Urine 0-5 /hpf (0-5); WBC Urine 0-5 /hpf (0-5)
[2025-04-22 09:14] LABS: Amphetamines Screen Urine Positive (Negative); Barbiturates Screen Urine Negative (Negative); Benzodiazepines Screen Urine Positive (Negative); Cocaine Screen Urine Negative (Negative); Opiate Screen Urine Negative (Negative); PCP Screen Urine Negative (Negative); THC Screen Urine Positive (Negative)
--- NOTE | 2025-04-22 14:32 | P.PN_ITS ---
Subjective 2 Subjective: States doing better. Denies any nausea, vomiting, headache. States able to ambulate now inside the room without leg pain. Vitals/I&O/Wt Last Vital Signs Temp 97.8 F 04/22/25 11:56 Pulse 59 L 04/22/25 11:56 Resp 16 04/22/25 11:56 BP 132/82 04/22/25 11:56 Pulse Ox 97 04/22/25 11:56 O2 Del Method Room Air 04/22/25 11:56 04/21/25 04/22/25 04/22/25 22:59 06:59 14:59 Intake Total 650 / 1480 590 / 2070 240 / 240 Output Total 350 / 850 425 / 425 Balance 650 / 980 240 / 1220 -185 / -185 Weight last 48 hrs Weight 92.578 kg Physical Exam 2 Narrative: General: No acute distress, AO x3 HEENT: PERRLA, pupils bilaterally equal and reactive Chest: Normal vesicular breath sounds, no added sounds, equal good air entry bilaterally CVS: S1-S2 regular, no murmurs, no tachycardia, no gallops, no rubs Abdomen: Soft, nontender, no organomegaly, bowel sounds present Neuro: No focal deficits, no facial deformity, AO x3, power 5/5 in all limbs Skin: OTHER: Data 04/22/25 05:45 04/22/25 05:45 Micro: Microbiology 04/20/25 08:53 Bacterial Antigens - Final Urine Kidney 04/20/25 10:40 Blood Culture - Preliminary Blood NEGATIVE TO DATE 04/20/25 10:48 Blood Culture - Preliminary Blood NEGATIVE TO DATE A&P Assessment and plan (1) Cellulitis: Failure to outpatient treatment. Was given Bactrim as an outpatient. Slight improvement on IV antibiotics with decreased edema. Continues to remain warm and angry looking. Appreciate ESR, CRP. Follow-up blood cultures. MRSA swab negative. Appreciate negative procalcitonin trend. Lactate negative. For now continue with empiric vancomycin and Zosyn. Will continue vancomycin for 24 more hours. Lower limb Dopplers negative for DVT. (2) Venous stasis dermatitis of right lower extremity: (3) Essential hypertension: Goal blood pressure less than 140/90 mmHg. Blood pressure stable for now. Hold off on amlodipine. (4) Methamphetamine use disorder, moderate, in sustained remission: Urine drug screen not sent. UA still pending. (5) Hepatitis C: Negative HIV and hepatitis panel. Recheck as patient denies being treated for hepatitis C. (6) Failure of outpatient treatment: Given Bactrim as an outpatient. No improvement. Plan Full code Regular diet Protonix for PUD prophylaxis Heparin 5000 every 12 hourly for DVT prophylaxis. Plan for the day: Repeat ESR, CRP in AM. Leukocytosis resolved. Continue current IV antibiotics. Discharge plan: Plan for discharge in next 24 hours back home on oral antibiotics for cellulitis for overall 7 days. PDMP PDMP Reviewed: Not Reviewed Attestations 2 Medical Necessity Statement*: Requires further hospitalization for management of cellulitis with failure to outpatient treatment. Diagnoses Cellulitis L03.90 Venous stasis dermatitis of right lower extremity I87.2 Essential hypertension I10 Methamphetamine use disorder, moderate, in sustained remission F15.21 Acute hepatitis C virus infection without hepatic coma B17.10 Viral hepatitis chronicity: acute Hepatic coma status: without hepatic coma Failure of outpatient treatment Z78.9
[2025-04-22 15:04] LABS: HEP C RNA Viral Load Quant 3090000 IU/mL (NOT DETECTED); HEP C RNA Viral Load Quant 6.49 Log IU/mL (NOT DETECTED)
[2025-04-22] MEDS: FUROsemide 10 mg/mL SDV 2mL 20 MG IVP (15:38)
[2025-04-23] VITALS: BP 135/77; PULSE 70; RESP 16; TEMP 36.5; O2SAT 95
[2025-04-23] MEDS: heparin 5,000 unit/mL INJ 1 mL 5000 UNIT SUBCUT (02:18)
[2025-04-23 03:15] LABS: Basophils # 0.1 10^3/uL (0.0-0.1); Basophils % 0.7 %; Eosinophils # 0.6 10^3/uL (0.0-0.8); Erythrocyte Sedimentation Rate 23 mm/hr (0-10); Hematocrit 40.3 % (37-53); Lymphocytes # 4.9 10^3/uL (0.8-4.8); Lymphocytes % 51.1 %; Mean Corpuscular Hemoglobin 30.5 pg (27-33); Mean Corpuscular Volume 92.4 fl (82-101); Mean Platelet Volume 11.1 fL (7.4-10.4); Monocytes # 0.4 10^3/uL (0.2-0.9); Monocytes % 4.6 %; Neutrophils # 3.49 10^3/uL (1.8-7.7); Neutrophils % 36.9 %; Nucleated Red Blood Cells % 0 %; Platelet Count 251 10^3/cmm (157-399); Red Blood Count 4.36 10^6/uL (3.85-5.65); Red Cell Distribution Width 12.8 % (12.1-15.1); White Blood Count 9.49 10^3/uL (3.29-11.43)
[2025-04-23 03:34] LABS: C Reactive Protein 15.8 mg/L (0.0-4.9)
[2025-04-23 03:40] LABS: Alanine Aminotransferase 25 U/L (0-41); Albumin Level 3.4 g/dL (3.5-5.2); Alkaline Phosphatase 77 U/L (40-130); Anion Gap 12.7 (5-19); Aspartate Amino Transferase 19 U/L (0-40); Blood Urea Nitrogen 7 mg/dL (6-20); Calcium 8.8 mg/dL (8.5-10.5); Carbon Dioxide 28 mmol/L (22-29); Chloride 103 mmol/L (98-107); Creatinine Clr Calc Pharmacy 145.9452; Globulin 3.2 g/dL (1.3-4.6); Glomerular Filtration Rate 119.9 mL/min (90-130); Glucose 144 mg/dL (65-115); Magnesium 1.9 mg/dL (1.7-2.3); Osmolality Calculated 291 mOsm/kg (285-295); Phosphorus 3.7 mg/dL (2.5-4.5); Potassium 3.7 mmol/L (3.5-5.1); Sodium 140 mmol/L (136-145); Total Bilirubin 0.2 mg/dL (0.15-1.2); Total Protein 6.6 g/dL (6.6-8.7)
[2025-04-23 04:00] VITALS: BP 123/79; PULSE 66; RESP 18; TEMP 36.7; O2SAT 96
[2025-04-23 05:47] VITALS: PULSE 62
[2025-04-23] MEDS: piperacillin-tazobactam 3.375 GM in sodium chloride 0.9% (plus) 50 ML IV (06:27)
[2025-04-23 08:00] VITALS: BP 111/66; PULSE 62; RESP 17; TEMP 36.8; O2SAT 97
--- NOTE | 2025-04-23 08:27 | P.DS_ITS ---
Discharge Providers 2 Date of Admission: 04/20/25 13:35 Date of Discharge: April 23, 2025 Attending Provider at Admission: Ok Servin MD Attending Provider at Discharge: Ok Servin MD Primary Care Provider: Alonso Lara MD Diagnoses at Discharge Discharge Diagnosis (1) Cellulitis: Status: Acute (2) Venous stasis dermatitis of right lower extremity: Status: Acute (3) Essential hypertension: Status: Acute (4) Methamphetamine use disorder, moderate, in sustained remission: Status: Acute (5) Hepatitis C: Status: Acute Qualifiers: Hepatic coma status: without hepatic coma Viral hepatitis chronicity: a cute Qualified Code(s): B17.10 - Acute hepatitis C without hepatic coma (6) Failure of outpatient treatment: Status: Acute Reason for Visit 2 Reason for Visit: rt leg swollen Brief History: Ganga Hernandez is a 49 year old male with past medical history of hypertension, drug abuse in remission, hepatitis C presents to the ER because of worsening swelling in his leg along with pain for last 2 days. Patient states symptoms started around 4 days ago. Denies any injury, bites other than possible scratches from his pet dogs. He had gone to his PCP 2 days ago for the same symptoms for which she was given Bactrim without any improvement with worsening of pain in last 24 hours hence presented to the ER. Hospital Course Hospital Course Patient was admitted to the hospital further evaluation and management of left leg cellulitis. He was started on broad-spectrum antibiotics. Being on broad- spectrum antibiotics his symptoms improved. CRP trended down to 46 to 15. His cellulitis gradually is improving. Lower limb Dopplers were negative for DVT. He has been discharged in hemodynamically stable condition on oral antibiotics for 7 more days. He is to follow-up with his primary care provider within next 1 week. If he does not have any improvement in his cellulitis further he should have a lower limb CT scan for further evaluation. During hospitalization his blood cultures remained negative. Urine drug screen was positive for amphetamines. Physical Exam 2 Narrative: General: No acute distress, AO x3 HEENT: PERRLA, pupils bilaterally equal and reactive Chest: Normal vesicular breath sounds, no added sounds, equal good air entry bilaterally CVS: S1-S2 regular, no murmurs, no tachycardia, no gallops, no rubs Abdomen: Soft, nontender, no organomegaly, bowel sounds present Neuro: No focal deficits, no facial deformity, AO x3, power 5/5 in all limbs Skin: OTHER: Discharge Data Studies Completed and Pending Completed Studies During Hospitalization Category Date Time Status XR chest 1V portable [id number] Stat Exams 04/20/25 10:31 Completed US venous duplex lower extremity RT [CV venous duplex Ultrasound 04/20/25 10:30 [place] [id number]] Stat Pending at discharge Category Date Time Status Blood Culture Stat Lab 04/20/25 10:40 Results Radiology Impressions Chest X-Ray 04/20/25 10:31 IMPRESSION: No focal lung consolidation. Microbiology 04/20/25 08:53 Urine Kidney Bacterial Antigens - Final 04/20/25 10:40 Blood Blood Culture - Preliminary NEGATIVE TO DATE 04/20/25 10:48 Blood Blood Culture - Preliminary NEGATIVE TO DATE Laboratory Results WBC 9.49 10^3/uL (3.29-11.43) 04/23/25 02:28 RBC 4.36 10^6/uL (3.85-5.65) 04/23/25 02:28 Hgb 13.30 g/dL (11.27-16.99) 04/23/25 02:28 Hct 40.3 % (37-53) 04/23/25 02:28 MCV 92.4 fl (82-101) 04/23/25 02:28 MCH 30.5 pg (27-33) 04/23/25 02:28 MCHC 33.0 g/dL (30-55) 04/23/25 02:28 RDW 12.8 % (12.1-15.1) 04/23/25 02:28 Plt Count 251 10^3/cmm (157-399) 04/23/25 02:28 MPV 11.1 fL (7.4-10.4) H 04/23/25 02:28 Neut % (Auto) 36.9 % 04/23/25 02:28 Lymph % (Auto) 51.1 % 04/23/25 02:28 Wright % (Auto) 4.6 % 04/23/25 02:28 Eos % (Auto) 6.0 % 04/23/25 02:28 Baso % (Auto) 0.7 % 04/23/25 02:28 Neut # (Auto) 3.49 10^3/uL (1.8-7.7) 04/23/25 02:28 Lymph # (Auto) 4.9 10^3/uL (0.8-4.8) H 04/23/25 02:28 Wright # (Auto) 0.4 10^3/uL (0.2-0.9) 04/23/25 02:28 Eos # (Auto) 0.6 10^3/uL (0.0-0.8) 04/23/25 02:28 Baso # (Auto) 0.1 10^3/uL (0.0-0.1) 04/23/25 02:28 Nucleated RBC % (auto) 0 % 04/23/25 02:28 Nucleated RBCs # 0.0 /100WBC 04/23/25 02:28 ESR 23 mm/hr (0-10) H 04/23/25 02:28 Sodium 140 mmol/L (136-145) 04/23/25 02:28 Potassium 3.7 mmol/L (3.5-5.1) 04/23/25 02:28 Chloride 103 mmol/L (98-107) 04/23/25 02:28 Carbon Dioxide 28 mmol/L (22-29) 04/23/25 02:28 Anion Gap 12.7 (5-19) 04/23/25 02:28 BUN 7 mg/dL (6-20) 04/23/25 02:28 Creatinine 0.7 mg/dL (0.7-1.2) 04/23/25 02:28 GFR Calculation 119.9 mL/min (90-130) 04/23/25 02:28 Glucose 144 mg/dL (65-115) H 04/23/25 02:28 Estimat Average Glucose 114 04/20/25 10:40 Hemoglobin A1c 5.6 % (4.0-6.0) 04/20/25 10:40 Calculated Osmolality 291 mOsm/kg (285-295) 04/23/25 02:28 Lactic Acid 1.2 mmol/L (0.5-2.2) 04/20/25 10:40 Calcium 8.8 mg/dL (8.5-10.5) 04/23/25 02:28 Phosphorus 3.7 mg/dL (2.5-4.5) 04/23/25 02:28 Magnesium 1.9 mg/dL (1.7-2.3) 04/23/25 02:28 Iron 40 ug/dL (59-158) L 04/20/25 10:40 TIBC 270 mcg/dl 04/20/25 10:40 % Saturation 14.8 % (20-50) L 04/20/25 10:40 Unsat Iron Binding 230 ug/dL (112-347) 04/20/25 10:40 Total Bilirubin 0.2 mg/dL (0.15-1.2) 04/23/25 02:28 AST 19 U/L (0-40) 04/23/25 02:28 ALT 25 U/L (0-41) 04/23/25 02:28 Alkaline Phosphatase 77 U/L (40-130) 04/23/25 02:28 C-Reactive Protein 15.8 mg/L (0.0-4.9) H 04/23/25 02:28 NT-Pro-B Natriuret Pep < 36 pg/mL (0-125) 04/20/25 10:40 Total Protein 6.6 g/dL (6.6-8.7) 04/23/25 02:28 Albumin 3.4 g/dL (3.5-5.2) L 04/23/25 02:28 Globulin 3.2 g/dL (1.3-4.6) 04/23/25 02:28 Triglycerides 75 mg/dL (0-150) 04/21/25 05:41 Cholesterol 104 mg/dL (0-200) 04/21/25 05:41 LDL Cholesterol, Calc 58 mg/dL (50-129) 04/21/25 05:41 HDL Cholesterol 31 mg/dL (60-100) L 04/21/25 05:41 LDL/HDL Ratio 1.87 RATIO (0.00-3.22) 04/21/25 05:41 Cholesterol/HDL Ratio 3.35 mg/dL (1.0-5.00) 04/21/25 05:41 Vitamin B12 341 pg/mL (232-1245) 04/20/25 10:40 Folate 8.3 ng/mL (4.5-32.2) 04/21/25 05:41 Procalcitonin 0.44 ng/mL (0-0.5) 04/21/25 05:41 TSH 3.00 uIU/mL (0.27-4.20) 04/20/25 10:40 Urine Color Yellow (Yellow) 04/20/25 08:53 Urine Appearance Clear (CLEAR) 04/20/25 08:53 Urine pH 5.5 (5-7) 04/20/25 08:53 Ur Specific [place] 1.019 (1.005-1.030) 04/20/25 08:53 Urine Protein Negative (Negative) 04/20/25 08:53 Urine Glucose (UA) Negative (Normal) 04/20/25 08:53 Urine Ketones Negative (Negative) 04/20/25 08:53 Urine Blood Negative (Negative) 04/20/25 08:53 Urine Nitrate Negative (Negative) 04/20/25 08:53 Urine Bilirubin Negative (Negative) 04/20/25 08:53 Urine Urobilinogen 1.0 mg/dL (Negative) 04/20/25 08:53 Ur Leukocyte Esterase Negative (Negative) 04/20/25 08:53 Urine RBC 0-2 /hpf (0-2) 04/20/25 08:53 Urine WBC 0-5 /hpf (0-5) 04/20/25 08:53 Ur Squamous Epith Cells 0-5 /hpf (0-5) 04/20/25 08:53 Amorphous Sediment Not Reportable 04/20/25 08:53 Urine Bacteria None seen /hpf (NONE) 04/20/25 08:53 Hyaline Casts 0.40 /lpf 04/20/25 08:53 Nasal MRSA (PCR) Not detected (Negative) 04/20/25 14:28 Urine Opiates Screen Negative ng/mL (Negative) 04/20/25 08:53 Ur Barbiturates Screen Negative ng/mL (Negative) 04/20/25 08:53 Ur Phencyclidine Scrn Negative ng/mL (Negative) 04/20/25 08:53 Ur Amphetamines Screen Positive ng/mL (Negative) H 04/20/25 08:53 U Benzodiazepines Scrn Positive ng/mL (Negative) H 04/20/25 08:53 Urine Cocaine Screen Negative ng/mL (Negative) 04/20/25 08:53 U Marijuana (THC) Screen Positive ng/mL (Negative) H 04/20/25 08:53 Hepatitis A IgM Ab Non-reactive (Nonreactive) 04/20/25 12:23 Hep Bs Antigen Non-reactive (Nonreactive) 04/20/25 12:23 Hep Bs Antibody 279.7 (11.5-1000) 04/20/25 12:23 Hep B Core Total Ab Reactive (Nonreactive) H 04/20/25 12:23 Hepatitis C Antibody Reactive (Nonreactive) H 04/21/25 05:41 HCV RNA Qnt PCR Amp&Det Cancelled 04/21/25 13:57 HCV RNA (PCR) IUs/ml Cancelled 04/21/25 13:57 HCV RNA (PCR) IU log10 Cancelled 04/21/25 13:57 HIV 1&2 Ab & HIV 1 Ag Non-reactive (Non-Reactiv) 04/20/25 12:23 HIV 1&2 Antibody Non-reactive (Non-Reactiv) 04/20/25 12:23 Vitals Last Vital Signs Temp 98.3 F 04/23/25 08:00 Pulse 62 04/23/25 08:00 Resp 17 04/23/25 08:00 BP 111/66 04/23/25 08:00 Pulse Ox 97 04/23/25 08:00 O2 Del Method Room Air 04/23/25 08:00 Discharge Plan Discharge Patient Disposition: Home Condition: Stable Prescriptions: New levofloxacin 750 mg tablet 750 mg PO Q24H 7 Days Qty: 7 0RF amoxicillin-pot clavulanate 875-125 mg tablet 1 tab PO BID 7 Days Qty: 14 0RF Continued (DME) CAM walker See Rx Instructions .Route .MEDSUPPLY Qty: 1 0RF Rx Instructions: As directed methadone 40 mg tablet,soluble 90 mg PO DAILY furosemide [Lasix] 40 mg tablet 40 mg PO QAM Qty: 5 0RF ibuprofen [Advil] 200 mg Tablet 400 mg PO Q6H PRN (Reason: Fever Or Pain) Discontinued sulfamethoxazole-trimethoprim [Bactrim DS] 800-160 mg tablet 1 tab PO BID Qty: 14 0RF Discharge Orders: Discharge Order (Routine); Ordered 04/23/25 Ordered By: Ok Servin Referrals: Alonso Lara MD [Primary Care Provider, Family Practice] - 05/11/25 9:30 am Discharge Diet: Cardiac Discharge Activity: Resume usual activity and Increase activity as tolerated Patient Instructions: Amoxicillin/Clavulanate Potassium (By mouth), Levofloxacin (By mouth) (Levaquin, Levaquin Leva-lisy), Cellulitis (GEN), Opioid Safety Discharge Attestations 2 Time Spent in Discharge Care*: greater than 30 min Specific Discharge Activities: educating patient, discussing with pcp/other providers, discussing with telephonic nurse case manager/social workers/dc planners, documenting/other paperwork and evaluating patient/reviewing data Status at Discharge: Cognitive status at discharge: cognitively intact , B ehavioral status at discharge: cooperative , Functional status at discharge: i ndependent ambulation , Overall status at discharge: patient is progressing back to baseline Quality Metrics Clinical Quality Measures [ No reported AMI, CVA or VTE this stay] Coding Level of Care Code 51386 Total time (in minutes) for Discharge: 65 Diagnoses Cellulitis L03.90 Venous stasis dermatitis of right lower extremity I87.2 Essential hypertension I10 Methamphetamine use disorder, moderate, in sustained remission F15.21 Acute hepatitis C virus infection without hepatic coma B17.10 Hepatic coma status: without hepatic coma Viral hepatitis chronicity: acute Failure of outpatient treatment Z78.9
[2025-04-23] MEDS: docusate sodium 100 mg Capsule PO (09:05)
[2025-04-23] MEDS: pantoprazole DR 40 mg Tablet PO (09:05)
[2025-04-23] MEDS: methadone 10 mg Tablet 90 MG PO (09:05)
[2025-04-23 11:03] VITALS: BP 111/66; PULSE 62; RESP 17; TEMP 36.8; O2SAT 97
== END 2025-04-23 11:04 | disposition home or self-care (01) | DRG 603 ==
LOC: ER 12:06 → MEDSURG 13:35
PROVIDERS: Admitting Provider Student in an Organized Health Care Education/Training Program; Emergency Provider Emergency Medicine; PCP Family Medicine; Visit Provider Student in an Organized Health Care Education/Training Program
DX: L03.116 Cellulitis of left lower limb (principal); B17.10 Acute hepatitis C without hepatic coma; I10 Essential (primary) hypertension; F15.10 Other stimulant abuse, uncomplicated; T50.906A Underdosing of unspecified drugs, medicaments and biological substances, initial encounter; F11.90 Opioid use, unspecified, uncomplicated; G62.9 Polyneuropathy, unspecified; F17.210 Nicotine dependence, cigarettes, uncomplicated; Z91.128 Patient's intentional underdosing of medication regimen for other reason
CPT/HCPCS: 36415; 71045; 80053; 80061; 80306; 81001; 82607; 82746; 83036; 83540; 83550; 83605; 83735; 83880; 84100; 84145; 84443; 85025; 85651; 86140; 86403; 86705; 86706; 86709; 86803; 87040; 87340; 87522; 87806; 93971; 94664; 96365; 96372; 96375; 99285; J0692; J1644; J1938; J2543; J3370; J3372; J9999

== ENCOUNTER → 2025-05-31 15:48 | Outpatient (BNVA) | payer MEDICAID, SELFPAY | PROVIDERS: PCP Family Medicine; Visit Provider Student in an Organized Health Care Education/Training Program | DX: B17.10 Acute hepatitis C without hepatic coma (principal) | CPT/HCPCS: 36415; 81596; 86592; 87902 ==

== ENCOUNTER 2025-06-22 09:20 | Outpatient (CLI) | payer MEDICAID, SELFPAY ==
--- NOTE | 2025-06-22 09:45 | US_ITS ---
WS: [id number] RIGHT UPPER QUADRANT ULTRASOUND HISTORY: hepatitis c COMPARISON: Gallbladder ultrasound 04/12/2009 Liver: 13.0 cm in length. Normal size liver with coarse diffuse echotexture. No mass. Portal Vein: Normal hepatopetal flow with monophasic waveform. Gallbladder: Status post cholecystectomy. CBD: 0.4 cm Pancreas: Obscured. Right kidney: 8.3 cm in length. Entire RIGHT kidney has not been imaged. This is due to body habitus. No obstruction or hydronephrosis. Aorta and IVC: Unremarkable abdominal aorta and IVC. No ascites. US/US liver [id number] IMPRESSION: 1. Study is limited by body habitus. 2. Prior cholecystectomy. 3. Hepatic steatosis. Normal size liver.
== END 2025-06-22 09:21 | disposition home or self-care (01) ==
LOC: RAD 09:20
PROVIDERS: PCP Family Medicine; Visit Provider Student in an Organized Health Care Education/Training Program
DX: B17.10 Acute hepatitis C without hepatic coma (principal)
CPT/HCPCS: 76705

== ENCOUNTER 2025-07-06 13:21 | Outpatient (CLI) | payer MEDICAID, SELFPAY ==
[2025-07-06 15:53] LABS: Alanine Aminotransferase 17 U/L (0-41); Albumin Level 4.1 g/dL (3.5-5.2); Alkaline Phosphatase 111 U/L (40-130); Anion Gap 11.6 (5-19); Aspartate Amino Transferase 21 U/L (0-40); Blood Urea Nitrogen 12 mg/dL (6-20); Calcium 8.8 mg/dL (8.5-10.5); Carbon Dioxide 27 mmol/L (22-29); Chloride 102 mmol/L (98-107); Globulin 3.9 g/dL (1.3-4.6); Glucose 86 mg/dL (65-115); Osmolality Calculated 283 mOsm/kg (285-295); Potassium 3.6 mmol/L (3.5-5.1); Sodium 137 mmol/L (136-145); Total Protein 8.0 g/dL (6.6-8.7)
[2025-07-06 16:26] LABS: Hepatitis A Antibody IgM Non-Reactive (Nonreactive); Hepatitis B Surface Antigen Non-Reactive (Nonreactive)
[2025-07-08 13:19] LABS: HEP C RNA Viral Load Quant <1.18 NOT DETECTED Log IU/mL (NOT DETECTED); HEP C RNA Viral Load Quant <15 NOT DETECTED IU/mL (NOT DETECTED)
== END 2025-07-06 13:22 | disposition home or self-care (01) ==
PROVIDERS: PCP Family Medicine; Visit Provider Student in an Organized Health Care Education/Training Program
DX: B17.10 Acute hepatitis C without hepatic coma (principal)
CPT/HCPCS: 36415; 80053; 86705; 86706; 86709; 86803; 87340; 87522

== ENCOUNTER → 2025-09-08 18:07 | Outpatient (BNVA) | payer MEDICAID, SELFPAY | PROVIDERS: PCP Family Medicine; Visit Provider Emergency Medicine | DX: I10 Essential (primary) hypertension (principal); I87.2 Venous insufficiency (chronic) (peripheral); E87.70 Fluid overload, unspecified | CPT/HCPCS: 83880 ==